=== PATIENT | female | born 1940 | race Caucasian/White ===

== ENCOUNTER 2018-03-12 13:30 | Outpatient (RCR) | payer MEDICARE, OTHER, SELFPAY ==
--- NOTE | 2018-02-15 08:31 | AT_ITS ---
02/15/18 ATx1 SUBJECTIVE: Dot reporting mild pain improvements with start of aquatic PT. See flow sheet- remarkable skilled cueing throughout to complete program appropriately for intrinsic activation.
--- NOTE | 2018-02-19 09:45 | PTTR_ITS ---
DATE: 02/19/18 SUBJECTIVE: Back has made great improvements, generally feels better when she has been up and moving around alot, as if stationary she stiffens up quickly. She is not quite at her premorbid level of comfort yet. She feels her shoulder was overall doing much better, but for some reason last evening when sleeping, it was very uncomfortable and she had a hard time staying a sleep. She does not recall any specific activity over the weekend that may have exacerbated this. OBJECTIVE: L shoulder ROM: Flexion is 160, abduction 170, IR just below bra strap level, ER T2 all with pain at end ranges. Passively reaching 160 flexion, abduction full, ER 70, IR full post treatment, full motion throughout without pain. Accessory motions are WNL with exception of AP and inferior moderately limited, but WNL post treatment. With palpation, remarkable tension through the supraspinatus/infraspinatus fossa , particularly infraspinatus and posterior capsule and sensitive over the supraspinatus and bicep tendon attachments at the anterior GH joint. Manual therapy: (26373x2). L shoulder: Distraction, general gliding, and rolling of GH joint for desensitization with focus of AP and inferior gliding. Mobilization to end range flexion, quadrant position, but distraction AP/MWM sustained hold. Extensive STM throughout the L shoulder girdle with down regulation to the supraspinatus and infraspinatus fossa, scapular framing, deep trigger point release to the infraspinatus and supraspinatus fossa as well as cross friction desensitization of supraspinatus and bicep tendons, scap/thoracic mobilization with lift off distraction. [employer] [place] taping to L shoulder girdle to encourage proper position and movement pattern. This was preceded by up regulation of the L lower trap, in conjunction to the above soft tissue mobilization. Her treatment is continued on with Kera Murillo PTA per my direction (see her note for specifics) Direct treatment time: 30 mins Total treatment time: 30 mins DAIN/hoda
--- NOTE | 2018-02-19 14:19 | PTTR_ITS ---
DATE: 02/19/18 OBJECTIVE: Co treatment with DAPHNIE Roca. Please see her note for specifics. Therapeutic procedures ([id number]). * X See flow sheet: Continued pt's UE strengthening program as directed by PT. Emphasis on postural control muscles and low trap activation. Please see flow sheet for specifics. * X Provided skilled instruction in proper exercise performance: Pt requires mod cueing to maintain shoulder position during dynamic UE movements. * X Provided skilled manual cues to facilitate proper muscle recruitment and/ or movement pattern: Pt exhibits better muscle recruitment of low trap with manual cues vs verbal cues. * X Other: Pt reports muscle fatigue at end of session. Direct treatment time: 20 minutes Total treatment time: 20 minutes
--- NOTE | 2018-02-22 15:23 | AT_ITS ---
02/22/18 ATx1 Colleen states that since the application of kinesiotape to the (R) shoulder she has been able to sleep through the night for 3 nights which she states has not happened in along time. Pt completes a therapeutic exercise program in an aquatic setting for UE and LE strengthening as well as core stabilization and general conditioning as per flow sheet. Pt continues to require skilled instruction for core activation throughout session as well as for postural correction to avoid compensatory movement patterns. Pt ends with deep end biking and traction. Direct time: 20 minutes Total Time: 40 minutes
--- NOTE | 2018-02-28 08:07 | AT_ITS ---
03/01/17 ATx1- See flow sheet skilled cueing throughout for proper lower trap and glute recruitment. Completed exercises as documented per flow sheet. Skilled cueing for proper movement patterns. Total Time: 60 minutes Direct Time: 20 minutes Able to perform the majority of her program with minimal supervision once she is cues in exercise.
--- NOTE | 2018-03-01 12:40 | 90DAYPTPN_ITS ---
DATE: March 01, 2018 REFERRING: CRISTY Medrano REFERRING PROVIDER DIAGNOSIS:: Acute bilateral LBP without sciatica, L shoulder pain PHYSICAL THERAPY DIAGNOSIS: Chronic RC tendinopathy, L shoulder weakness, acute LBP with intrinsic weakness REPORTING PERIOD (for progress note and discharge note only): Back pain -03/01/18. L shoulder reporting period: 01/23/18-03/01/18 SUBJECTIVE: Colleen reporting that she feels her back is pretty much returned to her baseline premorbid level condition. She feels like she would be able to essentially complete any level of household or yard work activity without great exacerbation. She denies any remarkable pain for many weeks at this point. Her main complaint is of her L shoulder. She continues to have pain when completing higher level activities with the shoulder, noting recent pain with riding her bicycle and kayaking, as well as heavy lifting basic activities.When sedentary, she is non-symptomatic and has intermittent sleep disruption. Pain is local to the L lateral posterior shoulder. While her back is essentially pain free, she is very anxious about returning to work out activities or high level tasks due to fear of reoccurrence. Standardized Measures: * Disability Arm/Shoulder/Hand Score (DASH): 21% disability * Modified Oswestry Low Back Pain Questionnaire (MOLBPDQ): 18% disability OBJECTIVE: Posture: Scoliotic curvature with R thoracic convexity, L lumbar convexity and R thoracic rotation allowing for asymmetry of the pelvis and lengthening of the LLE in non WB, as well as compromise through the L shoulder mechanics. Gait: (indicate right or left deficits) * X WNL. Toe and heel walk WNL and non-irritable. Palpation: Non-tender through the lumbopelvic femoral region. R shoulder demonstrating remarkable tension and trigger points through the R upper trap and supraspinatus. Fascial restriction through the pec and in the posterior capsule. ROM: C-spine and RUE WNL. L shoulder: AROM Flexion reaches about 160 degrees, abduction without impingement into the abduction direction. IR reaches bra strap level. ER to the level of T4. Cross body is able to reach the anterior R shoulder, but with pain along the L posterior shoulder. Passively, she achieves full motion, but with pain at end range quadrant from about 170 degrees to 90 degrees of abduction, alleviated with AP mobilization with sustained pressure with MWM. Lumbar spine:Essentially WNL all planes without discomfort.She does continue to have some segmental hypomobility age related. Joint accessory motion: Deferred through lumbar spine due to lack of symptoms. Complete accessory motions of L GH joint essentially WNL with mild limitation with AP direction, but non-painful. Scap-thoracic is limited throughout in resting downward rotated position struggles to do traction of the scapula and end range restriction with upward rotation. Strength: L shoulder: Flexion 4/5 Abduction 4-/5 IR and ER both 4+/5 without remarkable pain. Bilateral LEs: grossly WNL and nonirrtiable. Demonstrating good activation of intrinsic lumbopelvic femoral musculature and able to maintain this in hook lying dynamic open and closed chain movements. Special Tests (indicate): Negative drop arm. Positive Cardona-Eros impingement. Positive empty can. Negative lift off. Negative speeds. Treatment: [place] [id number]: L GH accessory gliding all planes with focus of AP mobilization grade IV++, as well as just generalized mobilization for desensitization of the joint, followed by scap-thoracic mobilizations all planes , focusing on lift off and upward rotation and retraction movements. STM throughout the supraspinatus upper trap, scapular framing and pec release. End range mobilization of the GH joint into quadrant position with AP grade IV++ mobilization with movement. Also completed up-regulation strumming techniques through L lower trap. Rock taping applied to L shoulder girdle to facilitate L lower trap and proper position of the shoulder girdle, pt comments that she had excellent response to this post-last treatment. Otherwise, pt is seen in aquatic therapy. Please see that note. Defer land based strengthening today as to not overstrain the shoulder. Treatment time: 30 min ASSESSMENT: 77 yo female receiving PT services for 2 conditions: 1. L shoulder RC tendinopathy, 2. acute LBP. In regards to acute LBP, pt has had good resolution of symptoms at this point. She is now moving without discomfort and has restored mobility and restored LE strength functional transfers and yazidi of intrinsic strength in hook lying position without complication. However, pt continues to have fear of pain due to her remarkable struggle with her back following her toe surgery. I feel it is more than indicated to continue with higher level conditioning and strengthening, progressing her more to [facility] to improve her confidence and to ensure tolerance to higher level tasks. In regards to her L shoulder, she continues to require skilled PT intervention to attend the impairments of: L shoulder mobility deficits, soft tissue dysfunction , particularly through the supraspinatus and posterior capsule, poor scap thoracic position and mobility, poor body awareness of L shoulder girdle, poor lower trap recruitment to offer stability to the scapula, all of which are likely influenced by scoliotic deformity. Functional limitations secondary to impairment level problems above: inability to manipulate heavy objects and complete higher level activities such as biking or kayaking as she did compared to her premorbid level of function without pain , struggles with overhead movements, intermittent sleep disruption. She has had about a 40-50% improvement in regards to her L shoulder pain, as she now has no pain at rest or with light-moderate level of activities. She only struggles with higher level tasks. I do question if she may have a chronic RC partial tear , even possibly a subacromial deformity of some kind contributing to her symptoms. Will see how she continues with PT interventions and proceed with consideration of ortho consults at that time. G-Codes (add modifier after appropriate code): Discharged from category of Mobility- walking and moving around: [id number] based on MOLBPDQ. Projected goal was [id number]. She is discharged in this category as it is not offering her as much impairment or functional deficit as her UE, which is now her primary functional limitation based on standardized measure outcomes. Patient's primary functional limitation is in the category of: * X Carrying, moving and handling objects: [id number] based on DASH with projected goal status of [id number] Goals: L shoulder ST: Patient able to lift an object of 2# or less out to her side, 1 repetition without pain exceeding a 2/10.-MET 2: No sleep disruption.-Partially met 50% improved 3: Pain decreased to a 2/10 post quick movements of the L shoulder girdle.-MET LT: Return to full, pain-free, functional mobility of L UE.-Not met, progressing towards under POC. 2; Independent with self-maintenance program. Back: ST: Patient is able to complete 60 mins of yard work without pain exceeding a 2/ 10. 2: No longer having stiffness in the a.m. hours. 3: Patient feels she is able to lift objects from the floor of 10# or less without pain exacerbation. 4: Demonstrate good body mechanics and intrinsic activation with such activities. 5: 90% improvement. ALL MET LT.Return to premorbid level of function.-Not met as pt has fear of pain that she did not have compared to pre-morbid level of function with higher level activities, such as high level exercise, heavy object manipulation and prolonged activity. 2. Return to full, pain-free, functional mobility.-Met 3. Independent with self-maintenance program.-Progressing toward PLAN: Will continue to see pt 2x/week for an additional 6 weeks. Treatment to include: * X Manual therapy - 83885H- for GH and scapthoracic joint mobilizations and surrounding STM end range motion mobility. * X Therapeutic exercise - [id number] progression of her intrinsic lumbopelvic femoral stabilization program with progression more onto a gross core strengthening and conditioning program with the ultimate goal of getting pt more onto MSP over the next 2-3 sessions in regards to this.Will also be completing gross L shoulder girdle stabilization and strengthening efforts with focus of postural correction and intrinsic utilization of her lower traps and serratus. * __X__ Rock taping for neurofacilitation. * X Aquatic therapy - [id number] low impact strengthening of the L shoulder girdle, as well as higher level conditioning to the back to discourage exacerbation when completing therex. Thank you for this referral. Please do not hesitate to contact me with any questions or concerns. DAIN/fw MEDICAREDr. Pascual, please sign below and return to PT if you agree with above POC. Oz Pascual MD Date
--- NOTE | 2018-03-06 11:49 | PN_ITS ---
DATE: 03/06/18 SUBJECTIVE: Dot states that she is making gains weekly and (L) Shoulder is feeling the best that it has this week. She now notes that she is getting into her bed, putting pressure through her (L) UE without pain as she has prior up to this point. Also sleeping better. OBJECTIVE: Manual Therapy ([id number]): Distraction of the (L) glenohumeral joint with gliding in all planes and focus of AP sustained mobilization. Flexion/abduction oscillations to end range with quadrant APMWM, L scap, thoracic mobilizations at lift off grade 4++ mobilizations all end ranges. Therapeutic Procedure [id number]: See flow sheet, skilled cueing throughout for proper exercise performance and lower trap recruitment. Continues with wellness program with ict trainer per my direction (see flow sheet details) Treatment: Direct: 30/ Total 45 mins : G-Codes (add modifier after appropriate code): Per prior sessions documentation and justification Patient's primary functional limitation is in the category of: Present status * X Carrying, moving and handling objects: [id number], with projected goal [id number] PLAN: Continue as previously stated. DAIN/dl
--- NOTE | 2018-03-08 08:45 | PTTR_ITS ---
DATE: 03/08/18 SUBJECTIVE: Colleen states that she has been feeling pretty good. OBJECTIVE: * [X] Aquatic Therapy - (35520 x1): Patient completed a therapeutic exercise program in an aquatic setting for core stabilization and general strengthening, as per flow sheet. Patient tolerated a slight progression in her program today, modifications made to reps are noted on flow sheet. Patient required cuing for core activation and appropriate posture throughout session. Patient ends with deep water biking. Direct treatment time: 20 minutes Total treatment time: 40 minutes
--- NOTE | 2018-03-12 09:41 | PTDS_ITS ---
Date: March 12, 2018 Reporting period: 03/01-03/12/18 Referring: CRISTY Medrano Diagnosis: Acute bilateral LBP without sciatica, L shoulder pain PT diagnosis: Chronic RC tendinopathy, L shoulder weakness, acute LBP with intrinsic weakness Subjective: History of Present Illness: Colleen reporting this will be her last week here at PT, as she is returning to [place], which is her primary residence. She only [place] cruz here in [place] [address].She feels overall her back has come along very nicely. She occasionally has some discomfort.but she feels this is related to overall deconditioned state over the summer months and gaining some weight during that time period as she recovered. She intends to return to the gym upon her return to [place]. Her L shoulder has come a long very nicely. She now has no pain with any functional activities, just occasional discomfort when sleeping in awkward position. Pain Ratin/10 Standardized Measures: MOLBPDQ 2% disability compared to 18% disability on 03/01. DASH 12% disability, improved from 21% disability on 03/01/18. Objective: Posture: Continues to have mild forward head due to mild thoracic kyphosis contributing to secondary protrusion of bilateral shoulders but symmetrical. Gait: WNL. Palpation: Nontender throughout the lumbopelvic femoral region, as well as the L shoulder, with the exception of point tenderness along the supraspinatus tendon. ROM: C-spine: RUE WNL. L shoulder active motion is full, as well as passively without any discomfort, with the exception of end range IR, but with gentle AP glides completely dissipates her pain. Lumbar spine WNL and nonirritable. Strength: Essentially 5/5 with IR and ER, flexion/abduction about 4-4+/5 without discomfort and she maintains proper scap thoracic stability throughout. Throughout the core and LE's is essentially WNL, nonirritable and maintains proper intrinsic stability with open chain and closed chain hook lying activities. She demonstrates the ability to do functional movements, such as sit to stand, functional squats and single leg stance with good intrinsic control with no pain and no instability. Accessory motion is full throughout and nonirritable. Treatment: [place] [id number]: Mobilization of L GH joint, cross friction proximal supraspinatus, accessory gliding at end range IR and AP glide. TP [id number]: Review HEP extensively.See chart for specifics. Also included prone GH flexion, abduction, extension and rowing with verbal reminders and cuing to facilitate lower trap for proper scapular position Treatment Time: Assessment: Considering Dot is going to be absent from our clinic for PT following next week, and her lack of overall minimal clinical findings of impairments or great functional limitations, I feel it is appropriate for discharge today.She demonstrates great understanding of her L shoulder girdle strengthening and mobilization program and I have no doubts that she will be compliant with this, and I anticipate that she will have resolution of her discomfort with awkward sleeping positions at nighttime if she proceeds with this. In regards to her back. she continues to be compliant with her intrinsic core strengthening program she intends to return to the gym and to her call center trainer when she gets back to [place], which will only benefit her further. Even over the past 2-3 weeks. she has made excellent gains, which demonstrates that she is responding to her strengthening well. G-Codes: Discharge status carrying moving and handling objects [id number] based on DASH, achieving projected goal [id number]. L shoulder ST: Patient able to lift an object of 2# or less out to her side, 1 repetition without pain exceeding a 2/10.-MET 2: No sleep disruption.-80% improved just with occasional discomfort with an awkward sleeping position. Will continue to progress towards this with HEP. 3: Pain decreased to a 2/10 post quick movements of the L shoulder girdle.-MET LT: Return to full, pain-free, functional mobility of L UE.-Not met, progressing towards under POC. 2: Independent with self-maintenance program. Back: ST: Patient is able to complete 60 mins of yard work without pain exceeding a 2/ 10. 2: No longer having stiffness in the a.m. hours. 3: Patient feels she is able to lift objects from the floor of 10# or less without pain exacerbation. 4: Demonstrate good body mechanics and intrinsic activation with such activities. 5: 90% improvement. ALL MET LT.Return to premorbid level of function.-Met 2. Return to full, pain-free, functional mobility.-Met 3. Independent with self-maintenance program.-Met Plan: D/C as discussed above. DAIN/raffy MEDICARESamina, please sign below and return to PT if you agree with above POC. CRISTY Medrano Date cc:CRISTY Medrano
== END 2018-03-16 23:59 | disposition home or self-care (01) ==
LOC: PT 13:30
PROVIDERS: PCP Internal Medicine; Referring Provider Internal Medicine; Visit Provider Internal Medicine
DX: M65.812 Other synovitis and tenosynovitis, left shoulder (principal); M62.81 Muscle weakness (generalized); M54.5 Low back pain
CPT/HCPCS: 97110; 97113; 97140

== ENCOUNTER 2021-02-20 08:09 | Emergency (ER) | payer MEDICARE, OTHER, SELFPAY ==
--- NOTE | 2021-02-20 08:12 | ED.GENADUL_ITS ---
Discharge Plan Disposition Patient Disposition: HOME Condition: Stable Discharge Details Clinical Impression: Back pain, History of fracture of vertebra Primary Care Provider: Oz Pascual ED Provider: Gin Pisano Home Meds and New Rx's Prescriptions: New tramadol 50 mg tablet 50 mg PO TID PRN (Reason: pain) Qty: 14 RF: 0 methocarbamol 500 mg tablet 500 mg PO Q6H PRN (Reason: muscle spasm) Qty: 14 RF: 0 Continued pantoprazole 40 mg Tablet,Delayed Release (Dr/Ec) 40 mg PO DAILY RF: 0 montelukast 10 mg Tablet 10 mg PO DAILY RF: 0 pravastatin 20 mg Tablet 20 mg PO DAILY RF: 0 Discharge Instructions Instructions: Vertebral Compression Fracture (ED), Back Pain (ED) Additional Instructions: Apply ice to the affected area several times daily for 20 minutes at a time. Avoid heavy lifting, pushing, or pulling until recommended otherwise by your primary care doctor or the learning support specialist. Your prescriptions have been sent electronically to your pharmacy. Call the pharmacy to make sure your prescriptions are ready before pickup. Take the prescription as directed. You can take Tylenol every 4 hours as needed and directed for pain. You can take Advil sparingly as needed and directed for pain. Follow-up with your upcoming appointment with Alannah Morin with Spine medicine at [facility]. You can discuss whether a back brace is recommended for your back pain. You will receive a call from care management regarding a follow-up appointment with a primary care doctor to establish care and for reevaluation. Discharge Data Discharge Date/Time-TO BE ENTERED AT DEPARTURE: 02/20/21 09:11 Discharge Physician: Gin Pisano Medical Decision Making 80-year-old female diagnosed with a thoracic vertebral fracture in the last week status post a twisting injury with mechanical fall last week presents with persistent lower back pain. She denies any new injury. No cauda equina or urinary symptoms. She appears somewhat uncomfortable but nontoxic. She has no midline spinal or bilateral paraspinal tenderness. She has no focal deficits. As she has no midline spinal pain or evidence of acute neurologic injury, do not see an indication for repeat imaging. Patient given a dose of oxycodone and Valium p.o. here. She states she does not want stronger pain medication for home but would prefer something more mild. Prescriptions for tramadol and methocarbamol sent electronically to her pharmacy. She is formally moving here from [place] and does not have a local doctor yet. She was placed on care management list to establish care with a PCP. Advised to follow-up with her appointment with spine clinic this week. Usual and customary return precautions given prior to discharge. HPI General Mode of arrival: ambulatory . Date/Time Provider Initiated Documentation: 02/20/21 08:12 . Limitations to Documentation: no limitations . Information obtained by: patient . HPI Narrative: Patient is a 80-year-old female who was diagnosed with a vertebral compression fracture last week presents with distant lower back pain without relief with Advil. Patient states last week she was outside digging dirt when her foot got stuck in the mud and she twisted around with sudden onset of lower back pain. She states she was seen at a urgent care in [place] and diagnosed with a vertebral compression fracture and scheduled for a follow up appointment with VIRI Morin with orthopedics and spine medicine at [facility] for this . Patient states she is taking Advil every 2 hours without lasting relief. She denies any relief with Tylenol. She states the pain is worse with movement and walking with denies any bowel or bladder incontinence, saddle anesthesia, leg pain weakness or numbness, urinary symptoms, fevers, vomiting or abdominal pain. Patient denies any new injury. She states she is here today because she feels she cannot wait until next week for follow-up due to her persistent back pain. Her discharge paperwork from the urgent care clinic note that patient had lumbar spine x-rays but was diagnosed with a thoracic vertebral fracture. Related Data Home Medications Medication Instructions Recorded Confirmed methocarbamol 500 mg PO Q6H PRN #14 tab 02/20/21 montelukast 10 mg PO DAILY 02/20/21 02/20/21 pantoprazole 40 mg PO DAILY 02/20/21 02/20/21 pravastatin 20 mg PO DAILY 02/20/21 02/20/21 tramadol 50 mg PO TID PRN #14 tab 02/20/21 Previous Rx's Medication Instructions Recorded methocarbamol 500 mg PO Q6H PRN #14 tab 02/20/21 tramadol 50 mg PO TID PRN #14 tab 02/20/21 Allergies Allergy/AdvReac Type Severity Reaction Status Date / Time Sulfa (Sulfonamide Allergy Unverified 02/20/21 08:19 Antibiotics) Review of Systems All systems reviewed & are unremarkable except as noted in HPI and below Constitutional Constitutional: Reports as per HPI, Denies chills and Denies fever(s) Eyes Eyes: Denies blurry vision ENT Ears, Nose, Mouth, and Throat: Denies dizziness, Denies sore throat and Denies throat swelling Cardiovascular Cardiovascular: Denies chest pain and Denies dyspnea Respiratory Respiratory: Denies cough and Denies dyspnea Gastrointestinal Gastrointestinal: Denies abdominal pain, Denies diarrhea and Denies vomiting Genitourinary Genitourinary: Denies hematuria and Denies dysuria Musculoskeletal Musculoskeletal: Reports back pain and Denies numbness Integumentary/Breasts Skin/Breast: Denies lesions and Denies rash Neurologic Neurologic: Denies dizziness, Denies localized weakness and Denies numbness Allergic/Immunologic Allergic/Immunologic: Denies throat swelling PFSH Medical History (Updated 02/20/21 @ 09:08 by Gin Pisano DO) Asthma Hx of hyperlipidemia Surgical History (Updated 02/20/21 @ 09:08 by Gin Pisano DO) H/O repair of rotator cuff History of surgery on wrist Social History Smoking/Tobacco Use Status: Never Smoking risk assessment performed?: Yes Substance use type: does not use Exam Const General: cooperative, healthy appearing and no acute distress HENMT Head: normal to inspection Mouth: oral mucosae normal Eyes General: appearance normal, both eyes and all related structures Neck Neck: normal visual inspection Resp Effort & Inspection: normal respiratory effort and able to speak in complete sentences Cardio Rate: regular rate GI Palpation: soft, not firm, no guarding, not rigid and nontender Back/Spine/Pelvis Thoracic/Lumbar Spine: thoracic and lumbar spine normal to inspection, No eloisa barry tenderness, thoraco-lumbar ROM limited, No thoracic spinal tenderness and No lumbar spinal tenderness Skin General skin exam: no rashes or lesions noted Neuro General: patient alert, patient awake, patient oriented x3, moves all extremities, no meningeal signs and no focal motor deficits Motor: muscle tone normal throughout and strength 5/5 throughout DTR's: Rt Patellar: 2+, Lt Patellar: 2+, Rt Ankle: 2+ and Lt Ankle: 2+ Plantar Reflexes: Equivocal: bilateral (negative babinski b/l ) Extrem General: normal to inspection and full ROM Psych Appearance: grossly normal Affect: normal affect
[2021-02-20 08:14] VITALS: BP 149/72; PULSE 80; RESP 16; TEMP 36.1; O2SAT 97
[2021-02-20] MEDS: diazePAM 5 MG TAB PO (09:00)
[2021-02-20] MEDS: oxyCODONE 5 MG TAB PO (09:00)
--- NOTE | 2021-02-20 16:41 | NUR.NOTE ---
Nursing Note: referral faxed to care management for patient to get and follow up with pcp 02/20/21 dashawn
--- NOTE | 2021-02-22 12:49 | PDOC.ERCMPRO ---
- If Service Date Differs Date of service: 02/22/21 Time of Service: 12:49 Care Management Progress Note Mony is seen in the ED for back pain. At the request of ED provider, MALCOM coordinates a referral to KIRSTIN Jimenes, of the [facility], on-call provider, to assist patient in obtaining a follow up appointment and in establishing care with a PCP.
== END 2021-02-20 09:11 | disposition home or self-care (01) ==
PROVIDERS: Emergency Provider Physician Assistant; PCP Internal Medicine
DX: M54.5 Low back pain (principal); S22.000A Wedge compression fracture of unspecified thoracic vertebra, initial encounter for closed fracture; X50.1XXA Overexertion from prolonged static or awkward postures, initial encounter
CPT/HCPCS: 99283

== ENCOUNTER 2023-03-04 10:07 | Outpatient (REF) | payer MEDICARE, SELFPAY | END 2023-03-04 10:08 | disposition home or self-care (01) | LOC: LBN 10:07 | PROVIDERS: PCP Internal Medicine; Visit Provider Physician Assistant Medical | DX: J02.9 Acute pharyngitis, unspecified (principal) | CPT/HCPCS: 87070 ==

== ENCOUNTER → 2023-03-04 10:26 | Outpatient (CLI) | payer MEDICARE, SELFPAY ==
--- NOTE | 2023-03-04 | DI.RAD_ITS ---
Exam(s) XR CHEST 2V PA LATERAL EXAM: XR CHEST 2V PA LATERAL CLINICAL HISTORY: COUGH. TECHNIQUE: 2D digital imaging was performed. COMPARISON: No exams were available for comparison FINDINGS: 2 views: Heart size is normal. The mediastinum is not widened. No infiltrates nor pleural effusions. Platelike atelectasis in left lung base noted. IMPRESSION: Platelike atelectasis in the left lung base. No confluent infiltrates. No pleural effusions. DATA REPOSITORY: RADIATION DOSE DELIVERED:
--- NOTE | 2023-03-04 11:25 | DI.VRAD_ITS ---
PROCEDURE INFORMATION: Exam: XR Chest Exam date and time: 03/04/2023 11:17 AM Age: 82 years old Clinical indication: Cough TECHNIQUE: Imaging protocol: Radiologic exam of the chest. Views: 2 views. COMPARISON: No relevant prior studies available. FINDINGS: Lungs: Discoid atelectasis in the left costophrenic angle. No focal consolidation Pleural spaces: Unremarkable. No pleural effusion. No pneumothorax. Heart/Mediastinum: Unremarkable. No cardiomegaly. Vasculature: Tortuous aorta Diaphragm: Eventration of the right hemidiaphragm Bones/joints: Dextroscoliosis of the thoracic spine. Degenerative changes in the glenohumeral joints IMPRESSION: No focal consolidation Dictated and Authenticated by: Barry Ashley MD. Ordering:MAKAYLA Guzman MD
== END ==
PROVIDERS: PCP Internal Medicine; Visit Provider Physician Assistant Medical
DX: J98.11 Atelectasis (principal); R05.9 Cough, unspecified
CPT/HCPCS: 71046

== ENCOUNTER 2023-03-24 10:02 | Emergency (ER) | payer MEDICARE, SELFPAY ==
[2023-03-24] VITALS (104 sets, daily range): BP systolic 117–170; BP diastolic 52–106; PULSE 69–91; RESP 9–27; TEMP 36.2–36.4; O2SAT 90–98
[2023-03-24 10:32] LABS: Abs Immature Grans 0.01 10^3/uL (0.0-0.06); Absolute Basophil Count 0.01 10^3/uL (0.0-0.2); Absolute Eosinophil Count 0.14 10^3/uL (0.0-0.7); Absolute Lymphocyte Count 1.07 10^3/uL (1.2-3.4); Absolute Monocyte Count 0.46 10^3/uL (0.1-0.8); Absolute Neutrophil Count 3.36 10^3/uL (1.2-6.7); Basophils % 0.2; Eosinophils % 2.8; HCT 36.7 % (36.0-46.0); HGB 12.7 g/dL (11.2-15.7); Immature Grans % 0.2; Lymphocytes % 21.2; MCH 30.8 pg (27.0-33.0); MCHC 34.6 % (32.0-36.0); MCV 89 fL (80-95); MPV 9.9 fL (8.0-11.0); Monocytes % 9.1; Neutrophils % 66.5; Platelet Count 200 10^3/uL (130-400); RBC 4.12 10^6/uL (3.93-5.22); RDW 13.6 % (11.7-14.6); RDW-SD 44.1 fL; WBC 5.05 10^3/uL (4.4-10.8)
[2023-03-24 10:46] LABS: Bilirubin Negative (Negative); Blood Negative (Negative); Clarity Clear (Clear); Glucose Negative (Negative); Ketones Negative (Negative); Leukocyte Esterase Negative (Negative); Nitrite Negative (Negative); Specific Gravity 1.015 (1.005-1.025); Urobilinogen 0.2 mg/dL (Up to 0.2)
[2023-03-24] MEDS: Normal Saline 1,000 ML 1000 ML IV (10:52)
[2023-03-24 11:00] LABS: ALT 27 U/L (14-59); AST 23 U/L (15-37); Albumin 3.6 g/dL (3.4-5.0); Alkaline Phosphatase 94 U/L (46-116); Anion Gap 8.5 mmol/L (3-11); BUN 11 mg/dL (7-18); Bilirubin, Total 0.9 mg/dL (0.2-1.0); CO2 29.5 mmol/L (21.0-32.0); CREATININE 1.1 mg/dL (0.55-1.02); Calcium 10.4 mg/dL (8.5-10.1); Chloride 103 mmol/L (98-107); Glucose 105 mg/dL (74-106); Magnesium 1.7 mg/dL (1.8-2.4); Sodium 141 mmol/L (136-145)
--- NOTE | 2023-03-24 11:00 | DI.CT_ITS ---
Exam(s) CT ABDOMEN PELVIS W EXAM: CT ABDOMEN PELVIS W CLINICAL HISTORY: Right upper quadrant pain, diarrhea TECHNIQUE: Imaging Protocol: Axial computed tomography images with coronal and sagittal reformatted images were created and reviewed CONTRAST MATERIAL: Intravenous: Omnipaque 350 Contrast volume:100 mL Oral: No COMPARISON: No exams were available for comparison FINDINGS: ABDOMEN: Lung Bases: Coronary artery calcification and/or stents. There is scarring and atelectasis in the joanne ng bases. Liver: Normal density. No measurable mass. Portal, Superior Mesenteric, and Splenic Veins: Unremarkable. Gallbladder and Biliary Tract: No radiodense calculus or dilation. Pancreas: There is fatty atrophy of the pancreas. Spleen: Normal. Adrenals: No masses seen. Kidneys: Normal size, contour and axis. No radiodense stones or obstructive uropathy. There are tiny hypodensities in both kidneys. They are too small for further characterization but likely reflect sm all cysts. Abdominal Aorta: Abdominal portion non-dilated. Atherosclerosis. Bowel: There is diverticulosis of the colon. There is no evidence of acute diverticulitis. There is a retrocecal appendix. The tip of the appendix measures 9 mm in diameter. No Kristina appendiceal infl ammatory changes are seen. The remainder of the pending sys air-filled. There is nonspecific thicke parag of the wall of the ascending and transverse colon. This may be due to underdistention but colit is should be considered. Peritoneal Cavity: No ascites, collection or mesenteric inflammatory response. No free air. Lymph Nodes: Within normal limits. Bones: Within normal limits for the patient's age. There are old nonunited right rib fractures. The re is an old marked compression T11 fracture. Soft Tissues: There is a small fat containing umbilical hernia. PELVIS: Bladder: Symmetric distention, no gross wall thickening. Reproductive Organs: Unremarkable as visualized. Lymph Nodes: Within normal limits. Bones: Within normal limits for the patient's age. IMPRESSION: 1. Wall thickening is seen in the ascending and transverse colon suspicious for an infectious or infl ammatory colitis. Following treatment, barium enema or colonoscopy should be considered to exclude u nderlying abnormality. 2. The tip of the appendix measures 9 mm in diameter. However the appendix is air-filled and no Kristina appendiceal inflammatory changes or appendicoliths is seen. This may represent a normal variant. N o definite evidence to suggest acute appendicitis at this time. Follow-up is recommended. 3. Findings were discussed with Pepito Rodríguez at 12:05 p.m. on 03/24/2023. RADIATION DOSE DELIVERED: 791.21mGy.cm Total DLP DATA REPOSITORY: All CT scans at this facility are submitted to the National Radiology Data Registry (NRDR) Dose Index Registry (DIR) with the [employer] ([employer]). RADIATION OPTIMIZATION: All CT scans at this facility use at least one of these dose optimization te chniques: automated exposure control; mA and/or kV adjustment per patient size (includes targeted exa ms where dose is matched to clinical indication); or iterative reconstruction.
[2023-03-24] MEDS: POTASSIUM CHLORIDE 20 MEQ, POTASSIUM CHLORIDE 10 MEQ 30 MEQ PO (11:11)
[2023-03-24] MEDS: Magnesium Oxide 400 MG TAB PO (11:12)
[2023-03-24] MEDS: Omnipaque 350 MG/ML 100 ML BTL IJ (11:38)
--- NOTE | 2023-03-24 11:38 | W.ED.GENAD ---
Discharge Plan Disposition Patient Disposition: Home Discharge Details Clinical Impression: Diarrhea, Colitis Primary Care Provider: Oz Pascual ED Provider: Peipto Rodríguez Home Meds and New Rx's Prescriptions: Continued pantoprazole 40 mg Tablet,Delayed Release (Dr/Ec) 40 mg PO DAILY montelukast 10 mg Tablet 10 mg PO PRN PRN Patient Comments: dos not use pravastatin 20 mg Tablet 20 mg PO DAILY tramadol 50 mg tablet 50 mg PO TID PRN (Reason: pain) Qty: 14 0RF Patient Comments: does not use methocarbamol 500 mg tablet 500 mg PO Q6H PRN (Reason: muscle spasm) Qty: 14 0RF Patient Comments: does not use ferrous sulfate [Iron (ferrous sulfate)] 325 mg (65 mg iron) Tablet 65 mg PO DAILY docusate sodium 100 mg Capsule 100 mg PO DAILY fluticasone propionate [Flovent HFA] 220 mcg/actuation HFA aerosol inhaler 2 inh INHALATION PRN PRN Patient Comments: INHALE 2 PUFFS 2 TIMES A DAY RINSE MOUTH AFTER USE.. multivitamin Tablet,Chewable 2 tab PO DAILY Pepcid Complete 10-800-165 mg Tablet,Chewable See Rx Instructions .ROUTE .COMPLEX Rx Instructions: 2 tab orally before dinner and then 2 tab orally before bed. cholecalciferol (vitamin D3) [Vitamin D3] 50 mcg (2,000 unit) Capsule 2,000 unit PO DAILY teriparatide 20 mcg/dose (620mcg/2.48mL) pen injector 20 mcg SUBCUT DAILY Discharge Instructions Instructions: Acute Diarrhea (ED) Additional Instructions: Continue to take your normally prescribed medication and also use probiotics as this will help with your normal gut ramiro. At this time we have discussed use of antibiotics or not and decided to hold off on any further prescriptions. It is recommended that if you have any worsening of your condition that you return to the emergency department for reassessment especially if you can provide a stool specimen otherwise follow-up with your primary care provider next week if not fully improved Referrals: Oz Pascual [Primary Care Provider] - (As needed for reassessment if not improving) Medical Decision Making Patient presenting to the emergency department for chief complaint of diarrhea. Patient reports that she has been having significant watery diarrhea 10-12 times a day for the last 4 days but does state that she had an episode similar to this 2 weeks ago that self resolved after couple days. Patient denies any bleeding or blood in stool, denies any fever chills, states mild intermittent nausea and right upper quadrant abdominal pain that is achy. Patient did have esophageal surgery in November otherwise has unremarkable medical history. Physical exam shows stable vital signs with no tachycardia or fever, patient not hypotensive, normal cardiac and respiratory exam, no CVA tenderness, no focal abdominal tenderness to palpation and normal active bowel sounds. Patient does state that she was recently on antibiotics but that it did not approximately 2 months ago and that there was significant amount of time in between her being on antibiotics and these episodes starting. Differential diagnosis to include colitis, C. difficile, undifferentiated abdominal pathology. We will plan on checking labs and CT imaging. Pending results will give IV fluids Reviewed patient's labs and CBC is overall unremarkable with no significant leukocytosis or shift, CMP shows slightly low potassium at 3.0 and magnesium of 1.7 which we will orally replete otherwise labs are nondiagnostic. Urinalysis is unremarkable as well. Spoke to radiologist in regards to CT imaging which she states that there is some signs of colitis. Did review his read and did note some appendix abnormalities but do not feel this is consistent with patient's acute symptoms. Patient has no significant white count leukocytosis or fever. Did attempt to obtain stool specimen from patient that she had resolution of her diarrhea here. Patient even requested to eat which she stated has been triggering her symptoms but this did not create any further symptoms. Discussed with patient empiric antibiotic use for her diarrhea versus outpatient monitoring and follow-up. After shared decision-making was utilized patient decided to hold off on any antibiotics and states that she will follow-up with her primary care provider. Patient was given specimen collection so that she could obtain a specimen and return to the emergency department especially for worsening symptoms. After discussion of diagnosis and plan of care patient has no further needs, questions, or concerns and states clear understanding to return to the emergency department for any worsening symptoms. This documentation was generated using Patient[employer]ation system, please disregard any oddities of phrase or misspellings. Imaging Data Radiologic Study: Imaging: CT Scan Radiologist's impression: Exam(s) a CT:CT abdomen & pelvis w Exam(s) CT ABDOMEN PELVIS W EXAM: CT ABDOMEN PELVIS W CLINICAL HISTORY: Right upper quadrant pain, diarrhea TECHNIQUE: Imaging Protocol: Axial computed tomography images with coronal and sagittal reformatted images were created and reviewed CONTRAST MATERIAL: Intravenous: Omnipaque 350 Contrast volume:100 mL Oral: No COMPARISON: No exams were available for comparison FINDINGS: ABDOMEN: Lung Bases: Coronary artery calcification and/or stents. There is scarring and atelectasis in the lung bases. Liver: Normal density. No measurable mass. Portal, Superior Mesenteric, and Splenic Veins: Unremarkable. Gallbladder and Biliary Tract: No radiodense calculus or dilation. Pancreas: There is fatty atrophy of the pancreas. Spleen: Normal. Adrenals: No masses seen. Kidneys: Normal size, contour and axis. No radiodense stones or obstructive uropathy. There are tiny hypodensities in both kidneys. They are too small for further characterization but likely reflect small cysts. Abdominal Aorta: Abdominal portion non-dilated. Atherosclerosis. Bowel: There is diverticulosis of the colon. There is no evidence of acute diverticulitis. There is a retrocecal appendix. The tip of the appendix measures 9 mm in diameter. No Kristina appendiceal inflammatory changes are seen. The remainder of the pending sys air-filled. There is nonspecific thickening of the wall of the ascending and transverse colon. This may be due to underdistention but colitis should be considered. Peritoneal Cavity: No ascites, collection or mesenteric inflammatory response. No free air. Lymph Nodes: Within normal limits. Bones: Within normal limits for the patient's age. There are old nonunited right rib fractures. There is an old marked compression T11 fracture. Soft Tissues: There is a small fat containing umbilical hernia. PELVIS: Bladder: Symmetric distention, no gross wall thickening. Reproductive Organs: Unremarkable as visualized. Lymph Nodes: Within normal limits. Bones: Within normal limits for the patient's age. IMPRESSION: 1. Wall thickening is seen in the ascending and transverse colon suspicious for an infectious or inflammatory colitis. Following treatment, barium enema or colonoscopy should be considered to exclude underlying abnormality. 2. The tip of the appendix measures 9 mm in diameter. However the appendix is air-filled and no Kristina appendiceal inflammatory changes or appendicoliths is seen. This may represent a normal variant. No definite evidence to suggest acute appendicitis at this time. Follow-up is recommended. Lab Data Lab results reviewed: Yes I reviewed the patient's lab results. HPI General Mode of arrival: ambulatory. Date/Time Provider Initiated Documentation: 03/24/23 10:15. Limitations to Documentation: no limitations. Information obtained by: patient and RN notes reviewed. History of Present Illness 82 year old F presents to the emergency department with the chief complaint of Diarrhea, described as severe, Quality is described as aching, and is localized to the abdomen. Patient started experiencing this week(s) (2) and it has been intermittent (But persistent the last 4 days). No relieving factors improve symptom(s), No exacerbating factors reported . Patient did receive the following treatments prior to arrival, none Related Data Home Medications Medication Instructions Recorded Confirmed methocarbamol 500 mg tablet 500 mg PO Q6H PRN muscle spasm #14 02/20/21 tabs montelukast 10 mg tablet 10 mg PO PRN PRN 02/20/21 02/20/21 pantoprazole 40 mg tablet,delayed 40 mg PO DAILY 02/20/21 03/24/23 release pravastatin 20 mg tablet 20 mg PO DAILY 02/20/21 03/24/23 tramadol 50 mg tablet 50 mg PO TID PRN pain #14 tabs 02/20/21 cholecalciferol (vitamin D3) 50 2,000 unit PO DAILY 03/24/23 03/24/23 mcg (2,000 unit) capsule (Vitamin D3) docusate sodium 100 mg capsule 100 mg PO DAILY 03/24/23 03/24/23 famotidine-Ca carb-mag hydrox 10 See Rx Instructions .Route .COMPLEX 03/24/23 03/24/23 mg-800 mg-165 mg chewable tablet (Pepcid Complete) ferrous sulfate 325 mg (65 mg 65 mg PO DAILY 03/24/23 03/24/23 iron) tablet (Iron (ferrous sulfate)) fluticasone propionate 220 2 inh inhalation PRN PRN 03/24/23 03/24/23 mcg/actuation HFA aerosol inhaler (Flovent HFA) multivitamin 2 tab PO DAILY 03/24/23 03/24/23 teriparatide 20 mcg/dose (620 20 mcg subcut DAILY 03/24/23 03/24/23 mcg/2.48 mL) subcutaneous pen injector Previous Rx's Medication Instructions Recorded methocarbamol 500 mg tablet 500 mg PO Q6H PRN muscle spasm #14 02/20/21 tabs tramadol 50 mg tablet 50 mg PO TID PRN pain #14 tabs 02/20/21 Allergies Allergy/AdvReac Type Severity Reaction Status Date / Time Sulfa (Sulfonamide Allergy Unverified 03/24/23 10:13 Antibiotics) General Stated Complaint: Abd Prob ELMIRA: 3 Review of Systems Constitutional Constitutional: Denies chills, Denies fever(s) and Reports poor appetite Cardiovascular Cardiovascular: Denies chest pain and Denies dyspnea Respiratory Respiratory: Denies cough and Denies dyspnea Gastrointestinal Gastrointestinal: Reports as per HPI, Reports abdominal pain, Denies melena, Denies hematochezia, Denies change in bowel habits, Denies constipation, Reports diarrhea, Reports nausea and Denies vomiting Genitourinary Genitourinary: Denies hematuria Integumentary/Breasts Skin/Breast: Denies rash PFSH All Active Problems (Updated 03/24/23 @ 14:39 by Pepito Rodríguez NP) Diarrhea (Acute) Colitis (Acute) Back pain (Acute) History of fracture of vertebra (Acute) Medical History Asthma Hx of hyperlipidemia Surgical History H/O repair of rotator cuff History of surgery on wrist Social History Smoking/Tobacco Use Status: Never Smoking risk assessment performed?: Yes Substance use type: does not use Housing: house Exam Const General: cooperative Orientation: alert, awake and oriented x3 Resp Effort & Inspection: normal respiratory effort and able to speak in complete sentences Auscultation: clear to auscultation bilaterally Cardio Rate: regular rate Rhythm: regular rhythm Heart Sounds: S1 normal and S2 normal GI Palpation: soft, not firm, no guarding, no masses, no pulsatile masses, not rigid and nontender Auscultation: normal bowel sounds Back/Spine/Pelvis Back: no CVA tenderness Neuro General: patient alert, patient awake, patient oriented x3, gait normal and moves all extremities Course Vital Signs Vital signs: Vital Signs Temperature 36.4 C L 03/24/23 10:09 Pulse 80 03/24/23 10:09 Respiratory Rate 18 03/24/23 10:09 Blood Pressure 141/96 H 03/24/23 10:09 Pulse Oximetry 97 03/24/23 10:09 Temperature 36.4 C L 03/24/23 10:09 Temperature Source Oral 03/24/23 10:09 Pulse 73 03/24/23 10:47 Respiratory Rate 23 03/24/23 10:57 Respiratory Effort Normal 03/24/23 10:27 Blood Pressure 135/68 03/24/23 10:47 Blood Pressure Position Supine 03/24/23 10:09 Pulse Oximetry 91 L 03/24/23 10:57 Oxygen Delivery Method Room Air 03/24/23 10:09 Oxygen Flow Rate 0 03/24/23 10:09 Pain Level 0 03/24/23 10:09 Lab/Test Results Lab/Test Results: Laboratory Tests Range/Units 03/24/23 03/24/23 03/24/23 10:21 10:21 10:40 WBC (4.4-10.8) 10^3/uL 5.05 RBC (3.93-5.22) 10^6/uL 4.12 Hgb (11.2-15.7) g/dL 12.7 Hct (36.0-46.0) % 36.7 MCV (80-95) fL 89 MCH (27.0-33.0) pg 30.8 MCHC (32.0-36.0) % 34.6 RDW (11.7-14.6) % 13.6 Plt Count (130-400) 10^3/uL 200 MPV (8.0-11.0) fL 9.9 Immature Gran % 0.2 Neutrophils % 66.5 Lymphocytes % 21.2 Monocytes % 9.1 Eosinophils % 2.8 Basophils % 0.2 Nucleated RBC % (0.0-0.3) % 0.0 Absolute Neutrophils (1.2-6.7) 10^3/uL 3.36 Absolute Lymphocytes (1.2-3.4) 10^3/uL 1.07 L Absolute Monocytes (0.1-0.8) 10^3/uL 0.46 Absolute Eosinophils (0.0-0.7) 10^3/uL 0.14 Absolute Basophils (0.0-0.2) 10^3/uL 0.01 Sodium (136-145) mmol/L 141 Potassium (3.5-5.1) mmol/L 3.0 L Chloride (98-107) mmol/L 103 Carbon Dioxide (21.0-32.0) mmol/L 29.5 Anion Gap (3-11) mmol/L 8.5 BUN (7-18) mg/dL 11 Creatinine (0.55-1.02) mg/dL 1.1 H Est GFR (CKD-EPI 2020) (mL/min/1.73m2) 50.80 Glucose (74-106) mg/dL 105 Calcium (8.5-10.1) mg/dL 10.4 H Magnesium (1.8-2.4) mg/dL 1.7 L Total Bilirubin (0.2-1.0) mg/dL 0.9 AST (15-37) U/L 23 ALT (14-59) U/L 27 Alkaline Phosphatase (46-116) U/L 94 Total Protein (6.4-8.2) g/dL 7.0 Albumin (3.4-5.0) g/dL 3.6 Urine Color (Yellow) Yellow Urine Clarity (Clear) Clear Urine pH (5-8) 6.0 Ur Specific [place] (1.005-1.025) 1.015 Urine Protein (Negative) mg/dL Negative Urine Ketones (Negative) mg/dL Negative Urine Blood (Negative) Negative Urine Nitrite (Negative) Negative Urine Bilirubin (Negative) Negative Urine Urobilinogen (Up to 0.2) mg/dL 0.2 Ur Leukocyte Esterase (Negative) Negative Urine Glucose (Negative) mg/dL Negative
[2023-03-24] MEDS: Normal Saline - Diluent 50 ML VIAL IJ (11:39)
== END 2023-03-24 15:02 | disposition home or self-care (01) ==
PROVIDERS: Emergency Provider Nurse Practitioner Family; PCP Internal Medicine
DX: R10.11 Right upper quadrant pain; K52.9 Noninfective gastroenteritis and colitis, unspecified
CPT/HCPCS: 80053; 87329; 87493; 87505; 96360; 99285; 74177; 81003; 83735; 85025; 87177; 99284; J3490

== ENCOUNTER 2024-05-05 08:17 | Observation (INO) | payer MEDICARE, SELFPAY ==
[2024-05-05] VITALS (52 sets, daily range): BP systolic 144–212; BP diastolic 60–92; PULSE 57–86; RESP 10–24; TEMP 35.6–36.5; O2SAT 91–99
--- NOTE | 2024-05-05 08:15 | RT.EKG_ITS ---
APPROVED REPORT Exam: Resting ECG Reason for Exam: Dizziness Patient Location: E HR:62 bpm ECG Measurements Heart Rate 62 AXIS IA 132 P 33 QRSd 96 QRS -6 QT 444 T 55 QTc 450 Conclusion Sinus rhythm, rate 62 No interval abnormalities No STEMI
--- NOTE | 2024-05-05 08:30 | DI.CT_ITS ---
Exam(s) CT BRAIN NECK CTA EXAM: CT BRAIN NECK CTA CLINICAL HISTORY: vertigo and AMARO, eval posterior stroke. TECHNIQUE: Imaging Protocol: Axial CT angiography was performed with multi-slice acquisition and mu lti-planar and/or 3D reconstructions. CONTRAST MATERIAL: Intravenous: Omnipaque 350 contrast volume:70 mL COMPARISON: No exams were available for comparison FINDINGS: CT Head W/O and W: Ventricles and Extra axial spaces: Normal in size and morphology for the patient's age. Hemorrhage: None. Cerebral parenchyma: There is no evidence of an acute territorial infarct. No mass effect is identif ied. Midline shift: None. Brainstem/Cerebellum: Normal. Calvarium: Normal. Visualized Paranasal sinuses/Mastoids: Clear. Soft Tissues: Unremarkable. Enhancement: Unremarkable. CTA Neck W: Common Carotid: Right: No dissection, occlusion or significant stenosis. Atherosclerotic calcification is seen in th e carotid bulb. Left: No dissection, occlusion or significant stenosis. External Carotid: Right: No occlusion or significant stenosis. Left: No occlusion or significant stenosis. Internal Carotid: Right: No dissection, occlusion or significant stenosis. Mild atherosclerotic plaque is seen in the proximal internal carotid artery. Left: No dissection, occlusion or significant stenosis. There is mild atherosclerotic calcification in the proximal internal carotid artery. No significant stenosis. Vertebral Artery: Right: No dissection, occlusion or significant stenosis. The right vertebral artery is attenuated. T he right vertebral artery terminates at the right PICA. This is a normal variant. Left: No dissection, occlusion or significant stenosis. Lung Apices: No focal infiltrates or apical pneumothorax. Bones: Within normal limits for the patient's age. There is reversal of the normal cervical lordosis. This is likely degenerative in nature. Soft Tissues: Normal. Thyroid gland: Unremarkable. CTA Brain W: Internal Carotid Arteries: Atherosclerotic calcification is present in both internal carotid arteries . No occlusion, aneurysm or significant stenosis is seen. Anterior Cerebral Arteries: Right: No aneurysm, occlusion or significant stenosis. Left: No aneurysm, occlusion or significant stenosis. Middle Cerebral Arteries: Right: No aneurysm, occlusion or significant stenosis. Left: No aneurysm, occlusion or significant stenosis. Posterior Cerebral Arteries: Both posterior communicating arteries are present which is a normal vari ant. Right: No aneurysm, occlusion or significant stenosis. Left: No aneurysm, occlusion or significant stenosis. Vertebral Arteries: Right: No aneurysm, occlusion or significant stenosis. Left: No aneurysm, occlusion or significant stenosis. Basilar Artery: No aneurysm, occlusion or significant stenosis. IMPRESSION: 1. No large vessel occlusion or significant stenosis on the CT angiography of the head. 2. No acute intracranial process. 3. No occlusion or significant stenosis on the CT angiography of the neck. RADIATION DOSE DELIVERED: 2,115.98mGy.cm Total DLP DATA REPOSITORY: All CT scans at this facility are submitted to the National Radiology Data Registry (NRDR) Dose Index Registry (DIR) with the [employer] ([employer]). RADIATION OPTIMIZATION: All CT scans at this facility use at least one of these dose optimization te chniques: automated exposure control; mA and/or kV adjustment per patient size (includes targeted exa ms where dose is matched to clinical indication); or iterative reconstruction.
--- NOTE | 2024-05-05 08:39 | ED.GENADUL_ITS ---
Discharge Plan Disposition Patient Disposition: Admit to [facility] Condition: Stable Discharge Details Chief Complaint: Dizzy/Sync Clinical Impression: Acute CVA (cerebrovascular accident), Vertigo, Hypertension, Headache Primary Care Provider: Oz Pascual ED Provider: Candelaria Hinojosa Home Meds and New Rx's Prescriptions: No Action pravastatin 20 mg Tablet 40 mg PO DAILY Pepcid Complete 10-800-165 mg Tablet,Chewable See Rx Instructions .ROUTE .COMPLEX Rx Instructions: 2 tab orally before dinner and then 2 tab orally before bed. Prolia 60 mg/mL syringe 60 mg subcut [id number] amlodipine 5 mg tablet 5 mg PO DAILY Women's Multivitamin 18 mg-400 mcg- 500 mg-50 mcg tablet 2 tab PO DAILY dutasteride 0.5 mg capsule 0.5 mg PO DAILY flucoinonide 1 unit topical DAILY ketoconazole 2 % shampoo 1 applic topical Q2W minixidil 1 tab PO .QOD Patient Comments: Pt takes 1/2 tab every other day Metamucil 3.4 gram/5.4 gram powder 1 tbsp PO QID Rx Instructions: mix into at least 8 oz of water or juice before administering budesonide-formoterol [Symbicort] 80-4.5 mcg/actuation HFA aerosol inhaler 1 inh inhalation DAILY HPI General Mode of arrival: ambulatory . Date/Time Provider Initiated Documentation: 05/05/24 08:22 . Limitations to Documentation: no limitations . Information obtained by: patient, family and old records reviewed . HPI Narrative: HPI: This is an 83-year-old female patient with a past medical history significant for hypertension, IBS, anemia, and hair loss. She is presenting today for an evaluation of room spinning sensation of vertigo that has been present for the last 8 to 12 hours, as well as a frontal pressure-like headache. The patient reports that these symptoms came on gradually, the pressure in her head has persisted and is slightly worse with position changes. Her vertigo is not affected by head movements, slightly worse with extremes of gaze deviation. The patient states that she has not sustained any trauma, recent illness, or fever. She has been taking her medications as prescribed, though 2 months ago she stopped taking her amlodipine for blood pressure as her hair loss medication also affects her blood pressure. She does not check her blood pressure regularly at the home, but today before presented to the emergency department was 170. The patient has never had vertigo or dizziness like this in the past. Last night she felt she had some double vision, which she states has resolved. Her headache is improved in severity from overnight. She has never had a stroke, denies blood thinner use, states that she has never had any cardiac disease. She is not experiencing any weakness or numbness in any part of her body. She denies chest pain or shortness of breath, has no back pain Exam: Gen: Awake and alert, in no apparent distress HEENT: Non-icteric sclera, pupils equal and reactive bilaterally, EOMs are full and without nystagmus, though the extremes of left greater than right gaze cause worsening of dizziness Neck: Supple Lungs: No apparent respiratory distress, normal respiratory effort. CV: Appears well perfused, strong and symmetrical distal pulses, heart with regular rate and rhythm Abdomen: Non-distended, soft, nontender MSK: Moves 4 extremities without apparent limitation in ROM. No peripheral edema Skin: Visualized skin without rashes, cyanosis. Neuro: Cranial nerves II through XII intact and symmetrical bilaterally, 5 out of 5 strength x 4 extremities, no pronator drift, accurate targeting bilaterally with [id number], [id number] testing. No dysdiadochokinesia.. Psych: Appropriate for situation. MDM: This is an 83-year-old female patient presenting for evaluation of vertigo and head pressure. My differential includes but is not limited to CVA, particularly posterior circulation strokes, also considered hypertensive urgency/emergency, press, RCVS. The patient is without visual acuity complaints at this time to suggest ocular abnormalities such as temporal arteritis, optic neuritis, glaucoma. I considered other endorgan damage from high blood pressure to include ACS, kidney injury, metabolic and electrolyte derangements. The patient did not have a clear onset time of symptoms and is without significant neurodeficits on my physical examination. She is not a candidate for tPA due to the timing and lack of debilitating symptoms, and for this reason I did not activate a stroke alert. However, the patient will require CTA imaging of her head and neck, we will obtain laboratory studies to include CBC, CMP, troponin, PT/INR. I will provide the patient with a dose of Tylenol for her headaches initial management. We obtained an EKG, which I reviewed and show ed a normal sinus rhythm without ischemia, interval abnormality, or ectopy. ED Course: I independently interpreted the laboratory studies, which show no significant leukocytosis, anemia, or thrombocytopenia. The chemistry panel is without evidence of electrolyte abnormality, kidney dysfunction, or liver injury. Troponin was low x 2 checks. I reviewed the patient's imaging studies, CTA is notable for an area of hyperattenuation in the right posterior cerebral artery concerning for infarct. A teleneurology consult was had, and during that provider's examination the patient reports that her headache and vertigo has resolved, current NIH score of 0. They recommended admission for MRI, medical optimization, and echo. I provided the patient with a dose of aspirin as well as 300 mg of Plavix. The patient did have redevelopment of her headache for which she received a second dose of Tylenol. She was admitted to the hospitalist service for ongoing management of her acute stroke. She is not a candidate for thrombectomy or tPA NK. She remained hemodynamically appropriate while under my care. Candelaria Hinojosa MD Related Data Home Medications ?Medication ?Instructions ?Recorded ?Confirmed pravastatin 20 mg tablet 40 mg PO DAILY 02/20/21 05/05/24 famotidine-Ca carb-mag hydrox 10 See Rx Instructions .Route .COMPLEX 03/24/23 05/05/24 mg-800 mg-165 mg chewable tablet (Pepcid Complete) amlodipine 5 mg tablet 5 mg PO DAILY 05/05/24 05/05/24 budesonide-formoterol HFA 80 1 inh inhalation DAILY 05/05/24 05/05/24 mcg-4.5 mcg/actuation aerosol inhaler (Symbicort) denosumab 60 mg/mL subcutaneous 60 mg subcut [id number] 05/05/24 05/05/24 syringe (Prolia) dutasteride 0.5 mg capsule 0.5 mg PO DAILY 05/05/24 05/05/24 flucoinonide 1 unit topical DAILY 05/05/24 05/05/24 ketoconazole 2 % shampoo 1 applic topical Q2W 05/05/24 05/05/24 minixidil 1 tab PO .QOD 05/05/24 05/05/24 [id number] 18 mg-FA 400 2 tab PO DAILY 05/05/24 05/05/24 mcg-calcium 500 mg-vit K 50 mcg tablet (Women's Multivitamin) psyllium husk 3.4 gram/5.4 gram 1 tbsp PO QID 05/05/24 05/05/24 oral powder (Metamucil) Allergies Allergy/AdvReac Type Severity Reaction Status Date / Time Sulfa (Sulfonamide Allergy Unknown Unverified 05/05/24 08:25 Antibiotics) General Stated Complaint: Dizzy/Sync [place]: 3 Course Vital Signs Vital signs: Vital Signs Temperature 35.6 C L 05/05/24 08:18 Pulse 65 05/05/24 08:18 Respiratory Rate 16 05/05/24 08:18 Blood Pressure 212/72 H 05/05/24 08:18 Pulse Oximetry 98 05/05/24 08:18 Temperature 35.6 C L 05/05/24 08:18 Temperature Source Temporal Artery Scan 05/05/24 08:18 Pulse 65 05/05/24 08:18 Respiratory Rate 16 05/05/24 08:23 Respiratory Effort Normal 05/05/24 08:23 Respiratory Depth Normal 05/05/24 08:23 Respiratory Pattern Normal 05/05/24 08:23 Blood Pressure 212/72 H 05/05/24 08:18 Blood Pressure Position Sitting 05/05/24 08:18 Pulse Oximetry 98 05/05/24 08:18 Oxygen Delivery Method Room Air 05/05/24 08:18 Oxygen Flow Rate 0 05/05/24 08:18 Pain Level 0 05/05/24 08:18 Medical Decision Making Quality:SDOH Health Related Social Needs: No Data to Display PFSH All Active Problems (Updated 05/05/24 @ 15:35 by Candelaria Hinojosa MD) Headache (Acute) Hypertension (Chronic) Vertigo (Acute) Acute CVA (cerebrovascular accident) (Acute) Back pain (Acute) History of fracture of vertebra (Acute) Medical History Asthma Hx of hyperlipidemia Surgical History H/O repair of rotator cuff History of surgery on wrist Social History Smoking/Tobacco Use Status: Never Smoking risk assessment performed?: Yes Alcohol Intake: current Alcohol Intake frequency: a few times a month Substance use type: does not use Housing: house
[2024-05-05] MEDS: Acetaminophen 500 MG TAB 1000 MG PO ×2 (08:56→14:57)
[2024-05-05 09:10] LABS: Abs Immature Grans 0.02 10^3/uL (0.0-0.06); Absolute Basophil Count 0.02 10^3/uL (0.0-0.2); Absolute Eosinophil Count 0.26 10^3/uL (0.0-0.7); Absolute Lymphocyte Count 0.81 10^3/uL (1.2-3.4); Absolute Monocyte Count 0.34 10^3/uL (0.1-0.8); Absolute Neutrophil Count 3.51 10^3/uL (1.2-6.7); Basophils % 0.4 %; Eosinophils % 5.2 %; HCT 39.8 % (36.0-46.0); Immature Grans % 0.4 %; Lymphocytes % 16.3 %; MCH 31.6 pg (27.0-33.0); MCHC 32.7 % (32.0-36.0); MCV 97 fL (80-95); MPV 9.3 fL (8.0-11.0); Monocytes % 6.9 %; Neutrophils % 70.8 %; Platelet Count 213 10^3/uL (130-400); RBC 4.12 10^6/uL (3.93-5.22); RDW 12.5 % (11.7-14.6); RDW-SD 44.2 fL; WBC 4.96 10^3/uL (4.4-10.8)
[2024-05-05 09:21] LABS: INR 0.9 (0.9-1.1); Prothrombin Time 9.5 sec (9.1-11.1)
[2024-05-05 09:28] LABS: ALT 24 U/L (14-59); AST 20 U/L (15-37); Albumin 3.5 g/dL (3.4-5.0); Alkaline Phosphatase 77 U/L (46-116); Anion Gap 8.4 mmol/L (3-11); BUN 22 mg/dL (7-18); Bilirubin, Total 0.48 mg/dL (0.2-1.0); CO2 28.6 mmol/L (21.0-32.0); Calcium 9.4 mg/dL (8.5-10.1); Chloride 107 mmol/L (98-107); Glucose 119 mg/dL (74-106); Magnesium 1.9 mg/dL (1.8-2.4); Potassium 4.2 mmol/L (3.5-5.1); Sodium 144 mmol/L (136-145); Total Protein 7.2 g/dL (6.4-8.2)
[2024-05-05] MEDS: Omnipaque 350 MG/ML 100 ML BTL IJ (09:47)
[2024-05-05] MEDS: Normal Saline - Diluent 50 ML VIAL IJ (09:47)
--- NOTE | 2024-05-05 10:41 | DI.VRAD_ITS ---
PROCEDURE INFORMATION: Exam: CTA Head Without And With Contrast, Arteriography Exam date and time: 05/05/2024 9:49 AM Age: 83 years old Clinical indication: Other: Vertigo and AMARO, eval posterior stroke TECHNIQUE: Imaging protocol: Computed tomographic angiography of the head without and with contrast. Exam focused on the arteries. 3D rendering (Not supervised by radiologist): MIP and/or 3D reconstructed images were created by the technologist. Radiation optimization: All CT scans at this facility use at least one of these dose optimization techniques: automated exposure control; mA and/or kV adjustment per patient size (includes targeted exams where dose is matched to clinical indication); or iterative reconstruction. Contrast material: OMNI 350; Contrast volume: 70 ml; Contrast route: INTRAVENOUS (IV); Other technique: STROKE PROTOCOL was implemented. COMPARISON: No relevant prior studies available. FINDINGS: ANTERIOR CIRCULATION: Right internal carotid artery: Intracranial segment is patent with no significant stenosis or occlusion. No aneurysm. Right middle cerebral artery: No occlusion or significant stenosis. No aneurysm. Right anterior cerebral artery: No occlusion or significant stenosis. No aneurysm. Left internal carotid artery: Intracranial segment is patent with no significant stenosis. No aneurysm. Left middle cerebral artery: No occlusion or significant stenosis. No aneurysm. Left anterior cerebral artery: No occlusion or significant stenosis. No aneurysm. POSTERIOR CIRCULATION: Right vertebral artery: No occlusion or significant stenosis. No aneurysm. Left vertebral artery: No occlusion or significant stenosis. No aneurysm. Basilar artery: No occlusion or significant stenosis. No aneurysm. Right posterior cerebral artery: Attenuation of the distal right posterior cerebral artery suspicious for infarct. Left posterior cerebral artery: No occlusion or significant stenosis. No aneurysm. HEAD: Brain: Normal. No hemorrhage. Unremarkable white matter. No mass effect. Cerebral ventricles: Normal. No ventriculomegaly. Bones: Unremarkable. No acute fracture. Paranasal sinuses: Visualized sinuses are normal. No fluid levels. Mastoid air cells: Visualized mastoids are normal. No mastoid effusion. Soft tissues: Unremarkable. IMPRESSION: 1. Attenuation of the distal right posterior cerebral artery suspicious for infarct 2. Unremarkable CT head. ASSESSMENT: ASPECTS ([place] Stroke Program Early CT Score) is 10. PROCEDURE INFORMATION: Exam: CTA Neck Without And With Contrast Exam date and time: 05/05/2024 9:49 AM Age: 83 years old Clinical indication: Other: Vertigo and AMARO, eval posterior stroke TECHNIQUE: Imaging protocol: Computed tomographic angiography of the neck without and with contrast. Exam focused on the cervical segments of the vasculature. 3D rendering (Not supervised by radiologist): MIP and/or 3D reconstructed images were created by the technologist. Radiation optimization: All CT scans at this facility use at least one of these dose optimization techniques: automated exposure control; mA and/or kV adjustment per patient size (includes targeted exams where dose is matched to clinical indication); or iterative reconstruction. Contrast material: OMNI 350; Contrast volume: 70 ml; Contrast route: INTRAVENOUS (IV); COMPARISON: CR XR CHEST 2V PA LATERAL 03/04/2023 11:17 AM FINDINGS: Right common carotid artery: No stenosis. No dissection or occlusion. Right internal carotid artery: No stenosis of the extracranial segment. No dissection or occlusion. Right external carotid artery: No occlusion or stenosis of the origin. Left common carotid artery: No stenosis. No dissection or occlusion. Left internal carotid artery: No stenosis of the extracranial segment. No dissection or occlusion. Left external carotid artery: No occlusion or stenosis of the origin. Right vertebral artery: No stenosis. No dissection or occlusion. Left vertebral artery: No stenosis. No dissection or occlusion. Soft tissues: Normal. No significant soft tissue swelling. Bones/joints: No acute fracture. IMPRESSION: No stenosis or occlusion. REFERENCES: NASCET CRITERIA. The degree of stenosis in the cervical segment of the internal carotid artery is based on NASCET criteria. Normal is no stenosis. Mild is less than 50% stenosis. Moderate is 50-69% stenosis. Severe is 70% to 99% stenosis. Total occlusion is no detectable patent lumen. Dictated and Authenticated by: Clari Newsome MD. Ordering:HENRY Lechuga MD
[2024-05-05 11:37] LABS: Hemoglobin A1C 5.8 % (<5.7)
[2024-05-05 11:42] LABS: Calculated LDL 96 mg/dL (<100); Cholesterol 211 mg/dL (<200); HDL Cholesterol 93 mg/dL (40-60); Triglyceride 113 mg/dL (<150); Troponin I 6 ng/L (<or=51)
[2024-05-05 12:46] LABS: Troponin I 5 ng/L (<or=51)
[2024-05-05] MEDS: Clopidogrel 300 MG TAB PO (13:08)
--- NOTE | 2024-05-05 15:07 | W.PC.ACHO ---
Registration Status: Primary Language: Preferred Language: ED Information & Data Chief Complaint Dizzy/Sync 05/05/24 08:39 Triage Note Pt feels dizzy and has 05/05/24 08:18 pressure on her head- started over the night Medical / Surgical History (Last Reviewed 03/24/23 @ 11:39 by Pepito Rodríguez NP) Hx of hyperlipidemia Asthma (Last Reviewed 03/24/23 @ 11:39 by Pepito Rodríguez NP) History of surgery on wrist H/O repair of rotator cuff Most Recent Vital Signs Temperature 35.6 C L 05/05/24 08:18 Temperature Source Temporal Artery Scan 05/05/24 08:18 Pulse 70 05/05/24 14:56 Pulse 79 05/05/24 14:56 Respiratory Rate 17 05/05/24 14:56 Respiratory Effort Normal 05/05/24 08:23 Respiratory Depth Normal 05/05/24 08:23 Respiratory Pattern Normal 05/05/24 08:23 Blood Pressure 172/72 H 05/05/24 14:56 Blood Pressure Mean 106 05/05/24 14:56 Blood Pressure Position Sitting 05/05/24 08:18 Pulse Oximetry 97 05/05/24 12:40 Oxygen Delivery Method Room Air 05/05/24 08:18 Oxygen Flow Rate 0 05/05/24 08:18 Pain Level 5 05/05/24 11:13 Allergies Sulfa (Sulfonamide Antibiotics) Allergy (Unverified 05/05/24 08:25) Unknown Precautions Isolation Standard precaution 05/05/24 08:22 Active Medications Generic Name Dose Route Start Last Admin Trade Name Arelis PRN Reason Stop Dose Admin Iohexol 100 ml 05/05/24 10:00 05/05/24 09:47 Omnipaque 350 Mg/Ml 100 Ml Btl IJ 06/04/24 23:59 70 ml DIRECTED FARRUKH Administration Sodium Chloride 50 ml 05/05/24 10:00 05/05/24 09:47 Normal Saline - Diluent 50 Ml Vial IJ 50 ml .FOR DI USE FARRUKH Administration IV IV Catheter Type [Right diffusic Antecubital] IV Catheter Gauge [Right 20 Antecubital] Diagnostics 05/05/24 05/05/24 05/05/24 Range/Units 14:04 12:15 11:20 WBC (4.4-10.8) 10^3/uL RBC (3.93-5.22) 10^6/uL Hgb (11.2-15.7) g/dL Hct (36.0-46.0) % MCV (80-95) fL MCH (27.0-33.0) pg MCHC (32.0-36.0) % RDW (11.7-14.6) % Plt Count (130-400) 10^3/uL MPV (8.0-11.0) fL Immature Gran % % Neutrophils % % Lymphocytes % % Monocytes % % Eosinophils % % Basophils % % Nucleated RBC % (0.0-0.3) % Absolute Neutrophils (1.2-6.7) 10^3/uL Absolute Lymphocytes (1.2-3.4) 10^3/uL Absolute Monocytes (0.1-0.8) 10^3/uL Absolute Eosinophils (0.0-0.7) 10^3/uL Absolute Basophils (0.0-0.2) 10^3/uL PT (9.1-11.1) sec INR (0.9-1.1) Sodium (136-145) mmol/L Potassium (3.5-5.1) mmol/L Chloride (98-107) mmol/L Carbon Dioxide (21.0-32.0) mmol/L Anion Gap (3-11) mmol/L BUN (7-18) mg/dL Creatinine (0.55-1.02) mg/dL Est GFR (CKD-EPI 2020) (mL/min/1.73m2) Glucose (74-106) mg/dL Hemoglobin A1c 5.8 H (<5.7) % Calcium (8.5-10.1) mg/dL Magnesium (1.8-2.4) mg/dL Total Bilirubin (0.2-1.0) mg/dL AST (15-37) U/L ALT (14-59) U/L Alkaline Phosphatase (46-116) U/L Troponin I Cancelled 5 6 (<or=51) ng/L Total Protein (6.4-8.2) g/dL Albumin (3.4-5.0) g/dL Triglycerides 113 (<150) mg/dL Total Cholesterol 211 H (<200) mg/dL LDL Cholesterol, Calc 96 (<100) mg/dL HDL Cholesterol 93 (40-60) mg/dL 05/05/24 Range/Units 09:03 WBC 4.96 (4.4-10.8) 10^3/uL RBC 4.12 (3.93-5.22) 10^6/uL Hgb 13.0 (11.2-15.7) g/dL Hct 39.8 (36.0-46.0) % MCV 97 H (80-95) fL MCH 31.6 (27.0-33.0) pg MCHC 32.7 (32.0-36.0) % RDW 12.5 (11.7-14.6) % Plt Count 213 (130-400) 10^3/uL MPV 9.3 (8.0-11.0) fL Immature Gran % 0.4 % Neutrophils % 70.8 % Lymphocytes % 16.3 % Monocytes % 6.9 % Eosinophils % 5.2 % Basophils % 0.4 % Nucleated RBC % 0.0 (0.0-0.3) % Absolute Neutrophils 3.51 (1.2-6.7) 10^3/uL Absolute Lymphocytes 0.81 L (1.2-3.4) 10^3/uL Absolute Monocytes 0.34 (0.1-0.8) 10^3/uL Absolute Eosinophils 0.26 (0.0-0.7) 10^3/uL Absolute Basophils 0.02 (0.0-0.2) 10^3/uL PT 9.5 (9.1-11.1) sec INR 0.9 (0.9-1.1) Sodium 144 (136-145) mmol/L Potassium 4.2 (3.5-5.1) mmol/L Chloride 107 (98-107) mmol/L Carbon Dioxide 28.6 (21.0-32.0) mmol/L Anion Gap 8.4 (3-11) mmol/L BUN 22 H (7-18) mg/dL Creatinine 1.0 (0.55-1.02) mg/dL Est GFR (CKD-EPI 2020) 56.60 (mL/min/1.73m2) Glucose 119 H (74-106) mg/dL Hemoglobin A1c (<5.7) % Calcium 9.4 (8.5-10.1) mg/dL Magnesium 1.9 (1.8-2.4) mg/dL Total Bilirubin 0.48 (0.2-1.0) mg/dL AST 20 (15-37) U/L ALT 24 (14-59) U/L Alkaline Phosphatase 77 (46-116) U/L Troponin I (<or=51) ng/L Total Protein 7.2 (6.4-8.2) g/dL Albumin 3.5 (3.4-5.0) g/dL Triglycerides (<150) mg/dL Total Cholesterol (<200) mg/dL LDL Cholesterol, Calc (<100) mg/dL HDL Cholesterol (40-60) mg/dL Intake and Output - 24 Hour Total 05/05/24 08:17 thru 05/05/24 09:06 Intake Total 10 Balance 10 Weight 68.039 kg Intake: IV 10 Falls Risk Assessment History of Falls No History 05/05/24 08:24 Contributing Factors No Factors 05/05/24 08:24 Ambulatory Aids Independent 05/05/24 08:24 Tubes/Lines None 05/05/24 08:24 Cognition No cognitive impairment 05/05/24 08:24 Fall Total Score 0 05/05/24 08:24 Level of Risk Standard/Low Risk 05/05/24 08:24 v v v v v v v v v Sending and/or Receiving Nurses: Please use comment section below to note any information pertinent to the patient hand-off not included above. Information / Comments: 12hrs of headache and dizziness Report received from: Jade
--- NOTE | 2024-05-05 15:59 | HPE_ITS ---
Date of service: 05/05/24 Time of Service: 14:40 Assessment and Plan Assessment and plan (1) Acute CVA (cerebrovascular accident): Status: Acute Assessment and plan: Abnormalities noted on CT angiogram of the neck and brain concerning for posterior cerebral artery distribution CVA nonhemorrhagic Patient given Plavix and aspirin in the emergency department. We will continue these medications. For echocardiogram with bubble study and MRI in the morning. For MRI in the morning for delineation and clarification of abnormalities on CT scan (2) Vertigo: Status: Acute Assessment and plan: Improved at this time. (3) Headache: Status: Acute Assessment and plan: Likely due to the CVA. Tylenol has been helping cover the pain well. (4) Hypertension: Status: Chronic Assessment and plan: Continue blood pressure medicines. Will attempt to keep systolic pressure 160- 170 in this patient due to her CVA (5) Back pain: Status: Acute Assessment and plan: Pain control as needed (6) History of fracture of vertebra: Status: Acute Assessment and plan: Pain control as needed (7) Hx of hyperlipidemia: History of Present Illness History of Present Illness Chief Complaint: vetigo, headache, ? CVA Narrative: Clinical course reviewed including notes, orders, labs, vitals, meds, imaging, and cultures. Care is discussed with primary nurse. Patient is an 83-year-old female who presented to the emergency department with complaints of vertigo and headache onset last night and worsening through the night. She underwent CTA of the head and neck which showed questionable changes in the right posterior cerebral artery distribution with questionable infarct. She had vertigo throughout most of the day but after presentation to the emergency department and administration of several different medications, her vertigo improved. She continues to have a frontal headache. Since the time of presentation, the patient's vertigo is since resolved, her blood pressure has been maintained in the 1 50-1 70 systolic range. She has no neurologic deficits. Telemetry neurology service was consulted and the patient was evaluated. Recommended were MRI and bubble study. Patient was given Plavix and aspirin and lab studies were drawn including hemoglobin A1c and lipid panel. She denies any chills fever nausea vomiting or diarrhea. She lives at home with her Brooks. They are dog people but are currently without a pet. There has been no recent travel. She does not drink or smoke. She is allergic to sulfa with a severe rash. She would like to be a full code and does not have an advanced directive She is fully vaccinated for COVID and has received every level of booster for COVID CTA Neck and Brain: MPRESSION: 1. Attenuation of the distal right posterior cerebral artery suspicious for infarct 2. Unremarkable CT head. Review of Systems Narrative: A 14 point review of systems was performed and negative except as noted below and in the HPI. She had vertigo, she currently has a frontal headache. PFSH All Active Problems (Updated 05/05/24 @ 15:46 by ANDRE REYNAGA) Headache (Acute) Hypertension (Chronic) Vertigo (Acute) Acute CVA (cerebrovascular accident) (Acute) Back pain (Acute) History of fracture of vertebra (Acute) Medical History Asthma Hx of hyperlipidemia Surgical History H/O repair of rotator cuff History of surgery on wrist Social History Smoking/Tobacco Use Status: Never Smoking risk assessment performed?: Yes Alcohol Intake: current Alcohol Intake frequency: a few times a month Substance use type: does not use Housing: house Meds Allergies and Home Medications Allergies Allergy/AdvReac Type Severity Reaction Status Date / Time Sulfa (Sulfonamide Allergy Unknown Unverified 05/05/24 08:25 Antibiotics) Home Medications ?Medication ?Instructions ?Recorded ?Confirmed ?Type pravastatin 20 mg tablet 40 mg PO DAILY 02/20/21 05/05/24 History famotidine-Ca carb-mag hydrox 10 See Rx Instructions .Route .COMPLEX 03/24/23 05/05/24 History mg-800 mg-165 mg chewable tablet (Pepcid Complete) amlodipine 5 mg tablet 5 mg PO DAILY 05/05/24 05/05/24 History budesonide-formoterol HFA 80 1 inh inhalation DAILY 05/05/24 05/05/24 History mcg-4.5 mcg/actuation aerosol inhaler (Symbicort) denosumab 60 mg/mL subcutaneous 60 mg subcut [id number] 05/05/24 05/05/24 History syringe (Prolia) dutasteride 0.5 mg capsule 0.5 mg PO DAILY 05/05/24 05/05/24 History flucoinonide 1 unit topical DAILY 05/05/24 05/05/24 History ketoconazole 2 % shampoo 1 applic topical Q2W 05/05/24 05/05/24 History minixidil 1 tab PO .QOD 05/05/24 05/05/24 History gyblmjyz-ome-tgya 18 mg-FA 400 2 tab PO DAILY 05/05/24 05/05/24 History mcg-calcium 500 mg-vit K 50 mcg tablet (Women's Multivitamin) psyllium husk 3.4 gram/5.4 gram 1 tbsp PO QID 05/05/24 05/05/24 History oral powder (Metamucil) Exam Narrative Exam Narrative: Patient is alert and oriented x 3 and in no acute distress. She is exceedingly pleasant with a warm personality. HEENT: Neck supple, MM pink and moist, conjunctiva non-injected, sclera non- icteric, Pupils equal and reactive to light symmetrically, no JVD, no A waves. No thyromegaly. No carotid bruit CHEST: Bilaterally symmetrical with inspiration and expiration. No use of accessory muscles of respiration. No nasal flaring. RESP: Clear to auscultation bilaterally, no rales, rhonchi or wheeze, no pleural friction rub, no post-tussive crackles or apical rales. COR: RRR without murmur, normal S1, S2, no rub or gallop ABDOMEN: Soft, non tender diffusely, normally active bowel sounds diffusely, No hepatosplenomegaly, No abdominal bruit, no masses, no tenderness on deep abdominal palpation. G/U: deferred Rectal: deferred MUSCULOSKELETAL: Bilaterally symmetrical, no muscle belly tenderness or mass DERMIS: Skin warm and dry, no ulcers or rashes, EXTREMITIES: No cyanosis, clubbing or edema, no gross deformities of the large or small joints of the upper or lower extremities with the exception of Heberden's nodes of the fingers.. NEUROLOGICAL: Cranial nerves intact II-XII without notable deficit, No peripheral neurosensory or motor deficits noted. Gait was not examined. LYMPH: No anterior or posterior cervical, no supraclavicular, No axillary, no epitrochlear or femoral lymphadenopathy. Results Labs 05/05/24 09:03 05/05/24 09:03 Labs: Laboratory Results - last 24 hr 05/05/24 05/05/24 05/05/24 09:03 11:20 12:15 WBC 4.96 RBC 4.12 Hgb 13.0 Hct 39.8 MCV 97 H MCH 31.6 MCHC 32.7 RDW 12.5 Plt Count 213 MPV 9.3 Immature Gran % 0.4 Neutrophils % 70.8 Lymphocytes % 16.3 Monocytes % 6.9 Eosinophils % 5.2 Basophils % 0.4 Nucleated RBC % 0.0 Absolute Neutrophils 3.51 Absolute Lymphocytes 0.81 L Absolute Monocytes 0.34 Absolute Eosinophils 0.26 Absolute Basophils 0.02 PT 9.5 INR 0.9 Sodium 144 Potassium 4.2 Chloride 107 Carbon Dioxide 28.6 Anion Gap 8.4 BUN 22 H Creatinine 1.0 Est GFR (CKD-EPI 2020) 56.60 Glucose 119 H Hemoglobin A1c 5.8 H Calcium 9.4 Magnesium 1.9 Total Bilirubin 0.48 AST 20 ALT 24 Alkaline Phosphatase 77 Troponin I 6 5 Total Protein 7.2 Albumin 3.5 Triglycerides 113 Total Cholesterol 211 H LDL Cholesterol, Calc 96 HDL Cholesterol 93 05/05/24 14:04 WBC RBC Hgb Hct MCV MCH MCHC RDW Plt Count MPV Immature Gran % Neutrophils % Lymphocytes % Monocytes % Eosinophils % Basophils % Nucleated RBC % Absolute Neutrophils Absolute Lymphocytes Absolute Monocytes Absolute Eosinophils Absolute Basophils PT INR Sodium Potassium Chloride Carbon Dioxide Anion Gap BUN Creatinine Est GFR (CKD-EPI 2020) Glucose Hemoglobin A1c Calcium Magnesium Total Bilirubin AST ALT Alkaline Phosphatase Troponin I Cancelled Total Protein Albumin Triglycerides Total Cholesterol LDL Cholesterol, Calc HDL Cholesterol Last Vital Signs Temp 35.6 C L 05/05/24 08:18 Pulse 70 05/05/24 14:56 Resp 17 05/05/24 14:56 BP 172/72 H 05/05/24 14:56 Pulse Ox 97 05/05/24 12:40 Time Spent Time spent with Patient: 55-74 minutes Time was spent: preparing to see the patient(eg.review tests), obtaining and/or reviewing separately otained hiistory, ordering medications,tests, procedures, referring, communicating with other health healthcare advisory services manager, indepentently interpreting results, counseling the patient and care coordination
[2024-05-05 19:43] LABS: COVID-19 PCR Negative (Negative); Influenza A PCR Negative (Negative); Influenza B PCR Negative (Negative); RSV PCR Negative (Negative)
[2024-05-05 19:44] LABS: Source NASOPHARYNX
[2024-05-05] MEDS: Enoxaparin 40 MG/0.4 ML SYR SC (21:54)
[2024-05-05] MEDS: Normal Saline Flush 10 ML SYR IVP (21:54)
--- NOTE | 2024-05-06 | DI.MRI_ITS ---
Exam(s) MR BRAIN WO EXAM: MR BRAIN WO CLINICAL HISTORY: abnormal CTA brain, ? CVA? TECHNIQUE: Multiplanar multisequence MRI of the brain was performed. COMPARISON: No exams were available for comparison FINDINGS: CEREBRAL PARENCHYMA: There is no evidence of intracranial hemorrhage, mass effect, or shift of midline structures. There are no extra-axial fluid collections. Ventricles are not enlarged or shifted. There is no significant focal signal abnormality in the cerebellar hemispheres nor within the midbrai n, and thalami. Small focus FLAIR bright signal noted in the upper right side of the nicole, not assoc iated with restricted diffusion. No abnormal signal evident thalami. There is scattered foci of non specific white matter signal abnormality the bilateral Kristina in supra ventricular white matter consist ent with chronic small vessel disease. There is no abnormal signal abnormality in the periventricular white matter. There is no significant focal signal abnormality evident on diffusion imaging to suggest acute ischem ic event. SWI reveals no evidence of microhemorrhages in the brain. PITUITARY GLAND: No mass nor parasellar abnormality. No obvious abnormality in the cavernous sinuses. FLOW VOIDS: The expected flow void are noted. No evidence of obvious aneurysm nor obvious vascular ma lformation. PARANASAL SINUSES: The visualized paranasal sinuses appear unremarkable. No obvious finding ORBITS: No obvious findings. IMPRESSION: Multiple small foci of FLAIR bright signal abnormality in the periventricular white matter consistent with chronic small vessel disease. Similar finding in the right-side of the upper nicole. There is, however, no restricted diffusion to suggest acute ischemic event.. DATA REPOSITORY:
[2024-05-06 01:50] VITALS: BP 126/77; PULSE 69; RESP 16; TEMP 36.1; O2SAT 94
[2024-05-06 06:45] LABS: Abs Immature Grans 0.01 10^3/uL (0.0-0.06); Absolute Basophil Count 0.02 10^3/uL (0.0-0.2); Absolute Eosinophil Count 0.25 10^3/uL (0.0-0.7); Absolute Lymphocyte Count 1.27 10^3/uL (1.2-3.4); Absolute Monocyte Count 0.36 10^3/uL (0.1-0.8); Absolute Neutrophil Count 2.89 10^3/uL (1.2-6.7); Basophils % 0.4 %; Eosinophils % 5.2 %; HCT 38.5 % (36.0-46.0); HGB 12.9 g/dL (11.2-15.7); Immature Grans % 0.2 %; Lymphocytes % 26.5 %; MCH 31.9 pg (27.0-33.0); MCHC 33.5 % (32.0-36.0); MCV 95 fL (80-95); MPV 9.5 fL (8.0-11.0); Monocytes % 7.5 %; Neutrophils % 60.2 %; Platelet Count 229 10^3/uL (130-400); RBC 4.04 10^6/uL (3.93-5.22); RDW 12.9 % (11.7-14.6); RDW-SD 45.1 fL
[2024-05-06 07:04] LABS: ALT 22 U/L (14-59); AST 20 U/L (15-37); Albumin 3.4 g/dL (3.4-5.0); Alkaline Phosphatase 80 U/L (46-116); Anion Gap 7.3 mmol/L (3-11); BUN 15 mg/dL (7-18); Bilirubin, Total 0.54 mg/dL (0.2-1.0); CO2 29.7 mmol/L (21.0-32.0); Calcium 9.1 mg/dL (8.5-10.1); Chloride 108 mmol/L (98-107); Glucose 100 mg/dL (74-106); Potassium 3.7 mmol/L (3.5-5.1); Sodium 145 mmol/L (136-145); Total Protein 7.3 g/dL (6.4-8.2)
[2024-05-06 07:21] VITALS: BP 134/90; PULSE 77; RESP 16; TEMP 36.4; O2SAT 97
[2024-05-06] MEDS: Multivitamin TAB 1 TAB PO (08:27)
[2024-05-06] MEDS: Clopidogrel 75 MG TAB PO (08:27)
[2024-05-06] MEDS: amLODIPine 5 MG TAB PO (08:28)
[2024-05-06] MEDS: Aspirin 81 MG CHEW PO (08:28)
[2024-05-06] MEDS: Psyllium PKT 1 EACH PO ×2 (08:28→12:27)
[2024-05-06] MEDS: Famotidine 20 MG TAB PO (08:28)
[2024-05-06] MEDS: Normal Saline Flush 10 ML SYR IVP (08:29)
--- NOTE | 2024-05-06 08:44 | PDOC.CMIN ---
Date of service: 05/06/24 Time of Service: 08:44 Care Management Initial Assmt Initial Assessment Reason for Hospitalization: Acute CVA Functional Status/Living Situation Town of Residence: [place] Resides with: Spouse (Louis) Employment Status: Retired Instrumental Activities of Daily Living (ADLs): Independent Medications Medication Management: No Issues/Barriers identified Physical Functioning/Mobility Assistive Device: None Advance Directives Advance Directives: Do you have an Advance Directive: N 05/05/24 08:35 AD On File at [facility]: N 03/27/24 09:19 Date Asked 05/05/24 05/05/24 08:35 AD Date Reviewed COLST On File at [facility] COLST Date Scanned Code Status Resuscitation Status Full Code Insurance Coverage/Financial Issues Insurance: Medicare Critical Access [facility] Care Team Visit Care Team Role Provider Type Oz Pascual Primary Care Provider NON-[facility] STAFF PHYSICIAN InPatient Jony Spangler Other Providers OTHER Candelaria Hinojosa MD Emergency Provider [facility] STAFF PHYSICIAN Louis Hamm DO Admit Provider [facility] STAFF PHYSICIAN Attending Provider Discharge Potential Discharge Needs: PT Evaluation and PCP F/U Appt Anticipated Barriers to Discharge: Medical Status Patient/Family Education Needs: Review discharge instructions, discuss Ask Me Three Transportation: Private vehicle Plan: Mony has been downstairs for testing much of day. CM will attempt to meet with patient again prior to her discharge. PFSH All Active Problems (Updated 05/06/24 @ 14:38 by Louis Hamm DO) Headache (Acute) Hypertension (Chronic) Vertigo (Acute) Acute CVA (cerebrovascular accident) (Acute) Back pain (Acute) History of fracture of vertebra (Acute) Medical History Asthma Hx of hyperlipidemia Surgical History H/O repair of rotator cuff History of surgery on wrist Social History Smoking/Tobacco Use Status: Never Smoking risk assessment performed?: Yes Alcohol Intake: current Alcohol Intake frequency: a few times a month Substance use type: does not use Housing: house [facility](Care Management) Screening Will the Patient Participate in the Screening?: Yes Do you worry about having a steady place to live?: no In the past 12 months, have you had to go without electric, gas, oil or water in your home?: no Have you or anyone in your house had to go without enough food to eat?: no Has lack of transportation kept you from medical appointments or from doing things needed for daily living?: no Has anyone in your support network made you feel unsafe for any reason?: no
[2024-05-06] MEDS: Budesonide/Formoterol 80/4.5 6.9 GM 60 PUFF INH IH (08:58)
--- NOTE | 2024-05-06 09:51 | RESPIRATORY ---
Pt is transplant from [facility] and states that she still currently sees a manufacturing baker down there. Her current home regimen is taking Symbicort 1 puff BID - and then throughout the day as needed (up to 6 times in 24 hours). Pt was educated and informed of the importance of using a spacer with this inhaler as well as rinsing her mouth after each use to prevent cases of thrush.
--- NOTE | 2024-05-06 10:30 | DI.US_ITS ---
APPROVED REPORT EXAM: Comprehensive 2D, Doppler, and color-flow Echocardiogram Patient Location: In-Patient Room/Bed: [facility] [place] Gate Guard: Minesh Quijano RDCS (AE) Indications: TIA, ? embolic CVA Echo Enhancing Agent Indication: Rule out Shunt Agent(s) / Amount(s) Used: Agitated Saline 30.0 cc Comments: Contrast study was performed with 3 IV injections of 10ccs of agitated normal saline, at re st, with cough and post valsalva maneuver. Negative contrast study for shunt flow. Conclusion Normal left ventricular wall thickness and chamber size. Ejection fraction is 65%. Wall motion is n ormal Normal right ventricular size and function Left atrium is moderately dilated. Right atrial size is normal Aortic valve is trileaflet and mildly sclerotic with trace regurgitation No intracardiac shunting is seen on injection of agitated saline Estimated right ventricular systolic pressure is 38 mmHg Wall motion Left Ventricle The left ventricle is normal size. The left ventricular systolic function is normal. The left ventric ular ejection fraction is within the normal range. There is normal left ventricular wall thickness. T here is normal LV segmental wall motion. The left ventricular diastolic function is normal. There is no ventricular septal defect visualized. LVEF is 65%. Right Ventricle The right ventricle is normal size. The right ventricular systolic function is normal. Atria Left atrium is moderately dilated The right atrium size is normal. Saline bubble contrast intravenous injection does not demonstrate PFO. Aortic Valve Aortic valve is trileaflet. The Aortic valve is mildly sclerotic. There is no aortic valvular stenosi s. Trace aortic regurgitation. Mitral Valve The mitral valve is normal in structure. No evidence of mitral valve stenosis. Tricuspid Valve The tricuspid valve is normal in structure. There is no tricuspid valve stenosis. Mild tricuspid regu rgitation. The RVSP is 38.4 mmHg. Pulmonic Valve The pulmonary valve is normal in structure. There is no pulmonic valvular stenosis. There is no pulmo radha valvular regurgitation. Great Vessels The aortic root is normal in size. The ascending aorta is normal in size. Aortic arch is normal in ca liber. IVC is normal in size and collapses >50% with inspiration. Pericardium There is no pericardial effusion. 2D Dimensions IVSD d PLAX 0.93 cm F: 0.6-1.0 Ao Root d 2.61 cm F: 2.7 - 3.3 LVPW d PLAX 0.90 cm F: 0.6 - 1.0 Ao Asc Diam d 2.62 cm F: 2.3 - 3.1 LVID d PLAX 3.69 cm F: 3.8 - 5.2 LVDs 2.53 cm F: 2.2 - 3.5 LV EF Teichholz 60.4 % FS 31.55 % LV EDV (Teich) 57.7 mL LV ESV (Teich) 22.9 mL Stroke Vol Index (Teich) 21.12 M-Mode TAPSE 2.55 cm (M/F) >1.7 Auto EF LV EDV A4C 76.8 mL LV EDV A2C 60.4 mL LV EDV BP 70.4 mL LV ESV A4C 33.9 mL LV ESV A2C 26.6 mL LV ESV BP 30.2 mL LVEF(%) A4C 55.9 % LVEF(%) A2C 56.0 % LVEF(%) BP 57.1 % LV SV A4C 43.0 ml LV SV A2C 33.8 ml LV SV BP 40.2 ml LV CO A4C 3.4 L/min LV CO A2C 3.2 L/min LV CO BP 3.3 L/min HR A4C 78.95 BPM HR A2C 95.49 BPM LV EDV Index (BP) LA Volume LA Length A4C 4.2 cm LA Length A2C 5.1 cm LA Area A4C s 11.09 cm2 LA Area A2C s 13.42 cm2 LA Vol A4C A-L 25.10 mL LA Vol A2C A-L 29.77 mL LA Vol Biplane A-L 30.4 mL LA Vol/BSA A4C A-L LA Vol/BSA A2C A-L LA Vol/BSA BP A-L 18.4 mL/m2 LA Vol A4C MOD 22.6 mL LA Vol A2C MOD 29.2 mL LA Vol BP MOD 27.9 mL RA Volume RA Area A4C 8.4 cm2 RA ESV A4C (A-L) 15.6mL RA Vol/BSA A4C A-L RA Length A4C 3.9 cm RA ESV A4C (MOD) 15.9mL LV Diastology MV E' medial 0.065 (>0.07 m/s) MV E Vmax 0.78 (0.4-1.3 m/s) MV E/E' MED 11.98 (<14) MV A Vmax 1.00 (0.4-1.3 m/s) MV E' lateral 0.094 (>0.1 m/s) E/A Ratio 0.8 MV E/E' LAT 8.30 (<14) MV E' Average 0.080 m/s MV E/E'(average) 9.81 Aortic Valve AoV Vmax 1.24 m/s LVOT Vmax 1.19 m/s AoV Peak Grad 6.2 mmHg LVOT Peak Grad 5.7 mmHg AoV Area (Vmax) 2.33 cm2 LVOT VTI 0.269 m AoV VTI 0.296 m LVOT Mean Grad 2.6 mmHg AoV Mean Arsh. 0.92 m/s LVOT SV 65.22 mL AoV Mean Grad 3.6 mmHg LVOT Diam s 1.75 cm AoV Area (VTI) 2.20 cm2 AV Regurg Peak Gr. 6.19 mmHg Velocity Ratio 0.96 Mitral Valve MV DT 236 (160-240 msec) MV Vmax TIPS 0.99 m/s MV Mean Grad 1.6 (<2mmHg) MV VTI 0.301 m Pulmonary Valve PV Vmax 0.97 (0.5-1.5 m/s) RVOT Vmax 0.66 m/s PV Peak Grad 3.8 mmHg RVOT Peak Gr. 1.7 mmHg PV Mean Arsh 0.68 m/s RVOT VTI 0.151 m PV Mean Grad 2.1 mmHg RVOT Mean Gr. 0.9 mmHg Tricuspid Valve RA Pressure 3.00 mmHg TR Vmax 2.98 m/s TR Peak Grad 35.4 mmHg RVSP (TR) 38.4 mmHg
[2024-05-06 12:13] VITALS: BP 145/80; PULSE 72; RESP 16; TEMP 36.5; O2SAT 98
--- NOTE | 2024-05-06 13:24 | IN_ITS ---
PT Notes Visit Reasons: TIA, Vertigo Physical Therapy Initial Evaluation Date: 05-06-2024 Referring Doctor: Dr. Fitzgerald PT Orders: PT CONSULT: PT evaluation Precautions: Standard Patient Profile/Admitting Diagnosis: Pt is 83 yo female presented to the ED on 05-05-24 with headache and dizziness. In ED pt found to be hypertensive. CT scan revealed possible right [employer] CVA nonhemorrhagic. Pt stabilized and transferred to Med Surg unit for further medical workup of MRI on 05-06-2024 and PT consult. PMHX: Headache (Acute) Hypertension (Chronic) Vertigo (Acute) Acute CVA (cerebrovascular accident) (Acute) Back pain (Acute) History of fracture of vertebra (Acute) Medical History Asthma Hx of hyperlipidemia Surgical History H/O repair of rotator cuff History of surgery on wrist Social History/Home Situation:Lives with in a 2 story home with 4 steps to enter and flight of stairs to bedroom and flight down to her basement. She reports she has railings on all stairs. She states she drives and is independent with ambulation, ADL, homemanagement , shopping, cooking, and medication management. She reports she attends outpatient PT for a heel spur on her right foot. Equipment Owned/DME: none Subjective: Pt states she does not need PT that she is feeling fine and is hoping to go home as soon as she gets the results of her MRI which she had this morning. Objective: General Observation: Fully dressed female seated at edge of bed with her present. Pt resistant to PT initially then agreeable after further discussion. Mental Status: Alert and oriented x 4 Pain: denies ROM: [] Right Upper Extremity: WNL Left Upper Extremity: WNL Right Lower Extremity: WNL Left Lower Extremity: WNL Strength: [] Right Upper Extremity: Grossly 5 / 5 Left Upper Extremity: Grossly 5 out of 5 except grasp diminished as compared to right upper extremity Right Lower Extremity: Grossly 5/5 Left Lower Extremity: Hip 4 / 5, knee 4/5 ankle 4/5 Sensation: Intact Bed Mobility/Transfers: Supine to sit independent Sit to stand independent Stand to sit independent Bed to chair independent Gait: Independent 400 feet without assistive device reciprocal pattern level surfaces including directional changes no loss of balance or instability noted positive arm swing bilaterally Stairs: Flight of stairs/13 with 1 rail reciprocal pattern modified independent Balance: [] Static Sitting: Normal Dynamic Sitting: Normal Static Standing: Normal Dynamic Standing: Normal 4 STAGE BALANCE TEST: Feet together 60 seconds 1/2 Stance 30 seconds Tandem stance 20 seconds Single leg stance left 13 seconds, right 16 seconds Special Tests: [] Mobility Limitations Standardized Measure [] [facility] AM-PAC 6 clicks Basic Mobility Inpatient Short Form: [] Raw Score: 24 CMS Score: 0 Informed Consent/Education: Patient instructed in purpose of PT consult. Assessment: Patient is 83-year-old female presenting with slight left lower extremity decreased coordination during rapid alternating movements with decreased excursion. Left upper extremity grasp slightly diminished from right although patient is right-hand dominant. Patient demonstrates no functional deficits at this time she is independent with all bed mobility transfers ambulation stairs without assistive device. Patient's plan is to return to outpatient PT for further treatment of her heel spur pain. No further skilled PT interventions indicated as an inpatient. Patient is assessed as a low complexity based on the following: History:83-year-old female with impairment level findings, functional limitations, and past medical history as indicated above Examination: Demonstrable impairment in strength, balance, and mobility level with underlying impairments and functional limitations as documented above Presentation: stable Decision Making: low Goals: N/A. Plan of Care/Treatment Plan: N/A. DISCHARGE RECOMMENDATIONS: Home with resumption of outpatient PT TREATMENT CODE/TIME: 56719 x 17 mins for 1 unit/ [id number] Thank you for the opportunity to participate in the care of this patient. Please sign an return this page within 30 days if you agree with the above POC. Thank you! Physician Signature Date [facility]
--- NOTE | 2024-05-06 14:20 | NUR.NOTE ---
Documentation reviewed with student NURSERY NURSE, Alejandra Herndon. Marisela Quintanilla, MSN, RNC-OB (clinical instructor)
--- NOTE | 2024-05-06 14:30 | PGE_ITS ---
Date of Service Date of service: 05/06/24 Time of Service: 14:30 Assessment and Plan Assessment and plan (1) Acute CVA (cerebrovascular accident): Status: Acute Assessment and plan: Abnormalities noted on CT angiogram of the neck and brain concerning for posterior cerebral artery distribution CVA nonhemorrhagic. This was not supported by the MRI which showed some chronic small vessel disease but no evidence of acute infarct. Patient given Plavix and aspirin in the emergency department which was continued today.. We will continue the aspirin but stop the Plavix at time of discharge. echocardiogram with bubble study negative for PFO. Otherwise age normal type of study with ejection fraction 65%. (2) Vertigo: Status: Acute Assessment and plan: Completely resolved at this time. No plans for medications for vertigo at time of discharge Possibly viral labyrinthitis (3) Headache: Status: Acute Assessment and plan: Headache is resolved. Likely viral related. (4) Hypertension: Status: Chronic Assessment and plan: Continue blood pressure medicines. Follow-up with primary care doctor in one 1 week (5) Back pain: Status: Acute Assessment and plan: Pain control as needed (6) History of fracture of vertebra: Status: Acute Assessment and plan: Pain control as needed (7) Hx of hyperlipidemia: Subjective Subjective Interval history since last seen: Clinical course reviewed including notes, orders, labs, vitals, meds, imaging, and cultures. Care is discussed with primary nurse. Patient offers no complaints. She denies any vertigo dizziness nausea abdominal pain or gait instability. Her is present with her in the room. She is fully dressed and wants to go home. Patient reports that the headache that she had is resolved, the vertigo is completely resolved. She had her MRI earlier and just completed her echocardiogram with bubble bubble study. Reading on the MRI is remarkable for multiple small foci of FLAIR bright signal abnormality to the periventricular white matter consistent with chronic small vessel disease. There was a similar finding in the right side of the upper nicole. There is however no restricted diffusion to suggest acute ischemic event. Echocardiogram with bubble study shows ejection fraction 65%. Mild tricuspid regurgitation, trace aortic regurgitation LV normal size no pericardial effusion the bubble contrast did not demonstrate PFO. Teleneurology was consulted today, I called [facility] [place] to arrange this event and we pushed the MRI imaging to them. Exam Narrative Exam Narrative: Patient is alert and oriented x 3 and in no acute distress. She is exceedingly pleasant with a warm personality. Her is in the room sitting in a chair. She is fully dressed and excited to go home. HEENT: Neck supple, MM pink and moist, conjunctiva non-injected, sclera non- icteric, Pupils equal and reactive to light symmetrically, no JVD, no A waves. No thyromegaly. No carotid bruit CHEST: Bilaterally symmetrical with inspiration and expiration. No use of accessory muscles of respiration. No nasal flaring. RESP: Clear to auscultation bilaterally, no rales, rhonchi or wheeze, no pleural friction rub, no post-tussive crackles or apical rales. COR: RRR without murmur, normal S1, S2, no rub or gallop ABDOMEN: Soft, non tender diffusely, normally active bowel sounds diffusely, No hepatosplenomegaly, No abdominal bruit, no masses, no tenderness on deep ab dominal palpation. G/U: deferred Rectal: deferred MUSCULOSKELETAL: Bilaterally symmetrical, no muscle belly tenderness or mass DERMIS: Skin warm and dry, no ulcers or rashes, EXTREMITIES: No cyanosis, clubbing or edema, no gross deformities of the large or small joints of the upper or lower extremities with the exception of Heberden's nodes of the fingers.. NEUROLOGICAL: Cranial nerves intact II-XII without notable deficit, No peripheral neurosensory or motor deficits noted. Gait was not examined. LYMPH: No anterior or posterior cervical, no supraclavicular, No axillary, no epitrochlear or femoral lymphadenopathy. Objective Last Vital Signs Temp 36.5 C 05/06/24 12:13 Pulse 72 05/06/24 12:13 Resp 16 05/06/24 12:13 BP 145/80 H 05/06/24 12:13 Pulse Ox 98 05/06/24 12:13 Laboratory Results - last 24 hr 05/05/24 05/06/24 16:21 06:10 WBC 4.80 RBC 4.04 Hgb 12.9 Hct 38.5 MCV 95 MCH 31.9 MCHC 33.5 RDW 12.9 Plt Count 229 MPV 9.5 Immature Gran % 0.2 Neutrophils % 60.2 Lymphocytes % 26.5 Monocytes % 7.5 Eosinophils % 5.2 Basophils % 0.4 Nucleated RBC % 0.0 Absolute Neutrophils 2.89 Absolute Lymphocytes 1.27 Absolute Monocytes 0.36 Absolute Eosinophils 0.25 Absolute Basophils 0.02 Sodium 145 Potassium 3.7 Chloride 108 H Carbon Dioxide 29.7 Anion Gap 7.3 BUN 15 Creatinine 1.0 Est GFR (CKD-EPI 2020) 56.60 Glucose 100 Calcium 9.1 Total Bilirubin 0.54 AST 20 ALT 22 Alkaline Phosphatase 80 Total Protein 7.3 Albumin 3.4 COVID-19 Source NASOPHARYNX SARS-CoV-2 (PCR) Negative Influenza Type A (PCR) Negative Influenza Type B (PCR) Negative RSV (PCR) Negative
--- NOTE | 2024-05-06 14:39 | DSE_ITS ---
Date of service: 05/06/24 Time of Service: 14:39 DS: Diagnosis Discharge Diagnosis (1) Acute CVA (cerebrovascular accident): Status: Acute Asessment and Plan: No evidence of CVA on MRI. Symptoms likely due to TIA or viral Lambrinthitis Will recommend a daily aspirin 81 mg and Plavix 75 mg PO daily x 21 days (2) TIA (transient ischemic attack): Status: Acute Asessment and Plan: No evidence of CVA on MRI. Symptoms likely due to TIA or viral Lambrinthitis Will recommend a daily aspirin 81 mg and Plavix 75 mg PO daily x 21 days (3) Vertigo: Status: Acute Asessment and Plan: Spontaneously resolved, requires no further medication (4) Headache: Status: Acute Asessment and Plan: Spontaneously resolved, requires no further medication (5) Hypertension: Status: Chronic Asessment and Plan: Stable Patient is instructed to continue home hypertension medicines (6) Back pain: Status: Acute Asessment and Plan: Stable (7) History of fracture of vertebra: Status: Acute Asessment and Plan: Stable (8) Viral labyrinthitis: Status: Acute Asessment and Plan: Teleneurology does not believe this is the cause despite the fevers and drenching sweats that also accompanied the onset of symptoms of vertigo. Will treat for TIA as per above. Discharge Plan Disposition Patient Disposition: Home Condition: Good Discharge Details Reason For Visit: TIA, Vertigo Admit Date/Time: 05/05/24 15:06 Admit Provider: Louis Hamm Attending Provider: Louis Hamm [facility] Course: Clinical course reviewed including notes, orders, labs, vitals, meds, imaging, and cultures. Care is discussed with primary nurse. Patient offers no complaints. She denies any vertigo dizziness nausea abdominal pain or gait instability. Her is present with her in the room. She is fully dressed and wants to go home. Patient reports that the headache that she had is resolved, the vertigo is completely resolved. She had her MRI earlier and just completed her echocardiogram with bubble bubble study. Reading on the MRI is remarkable for multiple small foci of FLAIR bright signal abnormality to the periventricular white matter consistent with chronic small vessel disease. There was a similar finding in the right side of the upper nicole. There is however no restricted diffusion to suggest acute ischemic event. Echocardiogram with bubble study shows ejection fraction 65%. Mild tricuspid regurgitation, trace aortic regurgitation LV normal size no pericardial effusion the bubble contrast did not demonstrate PFO. Teleneurology was consulted today, [place] [facility] [place] and we pushed the MRI imaging to them. Unfortunately they were unable to review the images. 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 They also recommended changing Pravastatin to Atorvastatin 40mg PO Daily as well. Patient is cautioned not to ride an upright bicycle while on the plavix due to the potential for bleeding. I did discuss topical minoxidil products for patient's hair loss as she is discontinuing the PO minoxidil. Home Meds and New Rx's Prescriptions: New aspirin 81 mg capsule 81 mg PO DAILY Qty: 1 0RF aspirin 81 mg capsule 81 mg PO DAILY Qty: 90 0RF clopidogrel [Plavix] 75 mg tablet 75 mg PO DAILY Qty: 20 0RF Continued pravastatin 20 mg Tablet 40 mg PO DAILY Pepcid Complete 10-800-165 mg Tablet,Chewable See Rx Instructions .ROUTE .COMPLEX Rx Instructions: 2 tab orally before dinner and then 2 tab orally before bed. Prolia 60 mg/mL syringe 60 mg subcut [id number] amlodipine 5 mg tablet 5 mg PO DAILY Women's Multivitamin 18 mg-400 mcg- 500 mg-50 mcg tablet 2 tab PO DAILY dutasteride 0.5 mg capsule 0.5 mg PO DAILY flucoinonide 0.05 % solution 1 unit topical DAILY PRN ketoconazole 2 % shampoo 1 applic topical Q2W MINOXIDIL 2.5 mg tablet 0.5 tab PO DAILY Patient Comments: Pt takes 1/2 tab every other day Metamucil 3.4 gram/5.4 gram powder 1 tbsp PO QID Rx Instructions: mix into at least 8 oz of water or juice before administering budesonide-formoterol [Symbicort] 80-4.5 mcg/actuation HFA aerosol inhaler 1 inh inhalation DAILY Discharge Instructions Instructions: Vertigo (a type of dizziness) Stand Alone Forms: Nursing Discharge Form Referrals: Oz Pascual [Primary Care Provider] - (Was not able to get ahold of the office, please call the office today or tomorrow to make an appointment with PCP within 1 to 2 weeks. ) Activity:: avoid falls/riding bike Equipment/Supplies:: No Equipment Needed Diet:: As Tolerated Discharge Orders Discharge Orders: Discharge Order (Routine); Ordered 05/06/24 Ordered By: Louis Hamm DS: Summary Time Spent with Patient providing and/or coordinating discharge services: Greater than 30 minutes Specific discharge activities: discussion with teleneurology, counseling. Status at Discharge Functional status at discharge: independent ambulation Overall status at discharge: patient is back to baseline Mental Status: mental status grossly normal Speech and Movement: speech and movement normal Mood: congruent mood Affect: normal affect Quality:SDOH Health Related Social Needs: No Data to Display Exam Narrative Exam Narrative: Patient is alert and oriented x 3 and in no acute distress. She is exceedingly pleasant with a warm personality. Her is in the room sitting in a chair. She is fully dressed and excited to go home. HEENT: Neck supple, MM pink and moist, conjunctiva non-injected, sclera non- icteric, Pupils equal and reactive to light symmetrically, no JVD, no A waves. No thyromegaly. No carotid bruit CHEST: Bilaterally symmetrical with inspiration and expiration. No use of accessory muscles of respiration. No nasal flaring. RESP: Clear to auscultation bilaterally, no rales, rhonchi or wheeze, no pleural friction rub, no post-tussive crackles or apical rales. COR: RRR without murmur, normal S1, S2, no rub or gallop ABDOMEN: Soft, non tender diffusely, normally active bowel sounds diffusely, No hepatosplenomegaly, No abdominal bruit, no masses, no tenderness on deep abdominal palpation. G/U: deferred Rectal: deferred MUSCULOSKELETAL: Bilaterally symmetrical, no muscle belly tenderness or mass DERMIS: Skin warm and dry, no ulcers or rashes, EXTREMITIES: No cyanosis, clubbing or edema, no gross deformities of the large or small joints of the upper or lower extremities with the exception of Heberden's nodes of the fingers.. NEUROLOGICAL: Cranial nerves intact II-XII without notable deficit, No peripheral neurosensory or motor deficits noted. Gait was not examined. LYMPH: No anterior or posterior cervical, no supraclavicular, No axillary, no epitrochlear or femoral lymphadenopathy. Psych Mental Status: mental status grossly normal Speech and Movement: speech and movement normal Mood: congruent mood Affect: normal affect DS: Data Vitals/I&O Vitals and I&O: Vital Signs Temperature 36.5 C 05/06/24 12:13 Temperature Source Tympanic 05/06/24 12:13 Pulse 72 05/06/24 12:13 Pulse 79 05/05/24 14:56 Respiratory Rate 16 05/06/24 12:13 Respiratory Effort Normal 05/05/24 16:23 Respiratory Depth Normal 05/05/24 16:23 Respiratory Pattern Normal 05/05/24 16:23 Blood Pressure 145/80 H 05/06/24 12:13 Blood Pressure Mean 106 05/05/24 14:56 Blood Pressure Position Sitting 05/05/24 08:18 Pulse Oximetry 98 05/06/24 12:13 Oxygen Delivery Method Room Air 05/06/24 07:21 Oxygen Flow Rate 0 05/06/24 07:21 Pain Level 0 05/06/24 12:13 Comment Patient denies headache at this time. 05/06/24 01:50 Intake & Output 05/05/24 05/06/24 05/06/24 23:59 11:59 23:59 Intake Total 250 / 260 600 / 600 Output Total 375 / 375 650 / 650 Balance -125 / -115 -50 / -50 Weight 67.8 kg Intake: IV Oral 240 / 240 600 / 600 Output: Urine 375 / 375 650 / 650 Other: Urine Color Yellow Urine Appearance Clear Urine Odor Normal Comment patient states she has been to the bathroom and voided Data Completed and Pending Labs on day of discharge: Labs from last 24 hours 05/06/24 05/05/24 06:10 16:21 WBC 4.80 RBC 4.04 Hgb 12.9 Hct 38.5 MCV 95 MCH 31.9 MCHC 33.5 RDW 12.9 Plt Count 229 MPV 9.5 Immature Gran % 0.2 Neutrophils % 60.2 Lymphocytes % 26.5 Monocytes % 7.5 Eosinophils % 5.2 Basophils % 0.4 Nucleated RBC % 0.0 Absolute Neutrophils 2.89 Absolute Lymphocytes 1.27 Absolute Monocytes 0.36 Absolute Eosinophils 0.25 Absolute Basophils 0.02 Sodium 145 Potassium 3.7 Chloride 108 H Carbon Dioxide 29.7 Anion Gap 7.3 BUN 15 Creatinine 1.0 Est GFR (CKD-EPI 2020) 56.60 Glucose 100 Calcium 9.1 Total Bilirubin 0.54 AST 20 ALT 22 Alkaline Phosphatase 80 Total Protein 7.3 Albumin 3.4 COVID-19 Source NASOPHARYNX SARS-CoV-2 (PCR) Negative Influenza Type A (PCR) Negative Influenza Type B (PCR) Negative RSV (PCR) Negative PFSH All Active Problems (Updated 05/06/24 @ 15:57 by Louis Hamm DO) Viral labyrinthitis (Acute) TIA (transient ischemic attack) (Acute) Headache (Acute) Hypertension (Chronic) Vertigo (Acute) Acute CVA (cerebrovascular accident) (Acute) Back pain (Acute) History of fracture of vertebra (Acute) Medical History Asthma Hx of hyperlipidemia Surgical History H/O repair of rotator cuff History of surgery on wrist Social History Smoking/Tobacco Use Status: Never Smoking risk assessment performed?: Yes Alcohol Intake: current Alcohol Intake frequency: a few times a month Substance use type: does not use Housing: house Time Spent with Patient Time Spent with Patient: 45-69 minutes Time was spent: preparing to see the patient(eg.review tests), obtaining and/or reviewing separately otained hiistory, ordering medications,tests, procedures, referring, communicating with other health manager medicare, indepentently interpreting results, counseling the patient and care coordination
--- NOTE | 2024-05-06 14:58 | CMDISCH_ITS ---
Date of service: 05/06/24 Time of Service: 14:58 LACE Index Scoring Tool Questions: Length of Stay (in days): 1 Was the patient admitted via the E.D.?: Yes Comorbidities: Cerebrovascular Disease E.D. Visits: 1 Answers: Total Score: 6 Risk of Readmission: Low Risk Care Management Discharge Plan Reason for Hospitalization: CVA Discharge Plan: Discharge home via private vehicle with family with resumption of [facility] PT services. Follow up with community providers and discharge plan of care. Patient/Family Education Needs: Review discharge limitations, medications and plan to follow up with community provider. Discuss ask me three. Services Needed at Discharge: Home Health Care Services (Resumption of [facility] PT) SDOH Health Related Social Needs: No Data to Display
== END 2024-05-06 16:10 | disposition home or self-care (01) ==
LOC: ER 15:35 → MS 15:45
PROVIDERS: Admitting Provider Internal Medicine; Emergency Provider Emergency Medicine; PCP Internal Medicine; Visit Provider Internal Medicine
DX: G45.9 Transient cerebral ischemic attack, unspecified; R51.9 Headache, unspecified; R42 Dizziness and giddiness; M54.9 Dorsalgia, unspecified; I10 Essential (primary) hypertension; K44.9 Diaphragmatic hernia without obstruction or gangrene; E78.5 Hyperlipidemia, unspecified
CPT/HCPCS: 00123; 36415; 70496; 70498; 80053; 80061; 87637; 93005; 93306; 94640; 96372; 97161; 99285; J1650; 70551; 83036; 83735; 84484; 85025; 85610; 93010; 94664; 99222; 99239; G0378; J3490